=== PATIENT | female | born 1970 | race Two or more races ===

== ENCOUNTER 2016-10-29 03:50 | Inpatient (IN) | payer OTHER ==
--- NOTE | ~2016-10-29 | XA198 ---
[facility] A Service of [facility] RADIOLOGY TEXT RESULTS PATIENT: ANGÉLICA BOWLES LOCATION: [place] [address]10 : [birth year] UNIT #: [id number] AGE: [address]: Gabriella Leavitt MD SEX: F ORDER DR: [id number] [place] [id number] [facility]. [place], [place] [address] [id number] MR#: [id number] Acc #: [id number] NAME: ANGÉLICA BOWLES : 1970 SEX: F STUDY DATE/TIME: 10/31/2016 10:03 UNIT: [facility] ROOM: [facility] STUDY DESCRIPTION: XA Spinal Puncture Attending Physician: Gabriella Leavitt M.D. Ordering Physician: Shayna Curry M.D. Primary Care Physician: No Primary Care Physician MEDICAL IMAGING REPORT This report is preliminary unless electronic signature is present EXAM LP under fluoroscopy HISTORY Recent stroke, mental status change. TECHNIQUE The procedure, attendant risks and options were discussed with the patient through a hair or beauty salon assistant. The patient is placed in the prone position. Skin was prepped and draped over the lumbar region. At the L3-L4 level posterolaterally, a 20-gauge needle was advanced under fluoroscopic control and under local anesthesia into the lumbar subarachnoid space, and approximately 20 mL of clear CSF was collected in 4 tubes. The needle was removed, hemostasis achieved. A single spot radiographs was obtained documenting placement. Total fluoroscopy time was 1.1 minutes. Total exposure 14 mGy. Air kerma standard. The needle was removed. Patient returned to the harmon in stable condition. CONCLUSION Successful LP under fluoro, as noted above. Dictated by... Henrique Henderson M.D. THIS IS AN ELECTRONICALLY VERIFIED REPORT Henrique Henderson M.D. at 11/01/2016 7:26 AM STEPHANIE/devon [facility] A Service of [facility] RADIOLOGY TEXT RESULTS PATIENT: ANGÉLICA BOWLES LOCATION: [facility] [id number] : 72 UNIT #: [id number] AGE: [address]: Gabriella Leavitt MD SEX: F ORDER DR: TD: 10/31/2016 13:17 JOB #: [id number] MEDICAL IMAGING REPORT Page 1 of 1 COPY
--- NOTE | ~2016-10-29 | CR72 ---
[facility] A Service of [facility] & [facility] RADIOLOGY TEXT RESULTS PATIENT: ANGÉLICA BOWLES LOCATION: [place] [address] : 72 UNIT #: [id number] AGE: [address]: Gabriella Leavitt MD SEX: F ORDER DR: [id number] [facility] [address] [place], [place] [address] [id number] I MR#: [id number] Acc #: [id number] NAME: ANGÉLICA BOWLES : 1970 SEX: F STUDY DATE/TIME: 10/30/2016 10:00 UNIT: [facility] ROOM: [facility] STUDY DESCRIPTION: CR Chest Single View Portable Attending Physician: Gabriella Leavitt M.D. Ordering Physician: Reid Gonzalez M.D. Primary Care Physician: Primary Care Physician No MEDICAL IMAGING REPORT This report is preliminary unless electronic signature is present EXAM Chest portable 10/30/2016 10 o'clock hours HISTORY 46-year-old woman with possible stroke. Chest pain with inspiration, low grade fever since yesterday. COMPARISON None. FINDINGS Portable upright chest demonstrates normal cardiac, mediastinal and hilar contours. The pulmonary vascularity is normal. The lungs are clear and there are no effusions. There are ECG leads coiled over the right chest. IMPRESSION No acute cardiopulmonary findings. Dictated by... Melonie Miller M.D. THIS IS AN ELECTRONICALLY VERIFIED REPORT Melonie Miller M.D. at 10/30/2016 2:28 PM Chelsey TD: 10/30/2016 11:22 JOB #: [id number] MEDICAL IMAGING REPORT Page 1 of 1 COPY
--- NOTE | ~2016-10-29 | DS ---
Unit #: [id number] #: [id number] Patient: ANGÉLICA BOWLES [id number] [address] [address] [id number] I MR#: [id number] NAME: ANGÉLICA BOWLES ROOM: 305 Age: 46 Sex: F Admission Date: 10/29/2016 : 1970 Discharge Date: Attending Physician: Gabriella Leavitt M.D. Primary Care Physician: No Primary Care Physician DISCHARGE SUMMARY ADDENDUM The patient is tearful and crying about her diagnosis and therefore, will be starting patient on an antidepressant. Please include to discharge meds: Fluoxetine 20 mg orally daily and neurology have decided to continue patient on aspirin 81 mg daily due to her atherosclerosis of the aorta. Dictated by... Jt Gallardo PA-C for Roverto Arreguin TD: 11/06/2016 09:39 JOB #: [id number] DISCHARGE SUMMARY Page 1 of 1 X X DISCHARGE SUMMARY
--- NOTE | ~2016-10-29 | FU ---
[facility] Nutrition Therapy DATE: 11/02/16 Patient: ANGÉLICA BOWLES Physician: AMANDA Address: [address] [place] [address] Room/Bed: [address] [place] [address], Zip: [place] [address] Admit Date: 10/29/16 Date of : [birth year] Height: 5 3 Weight: 128 58.5 NUTRITION MONITORING/FOLLOW-UP: Reason: Nutrition follow-up Admitting Dx: 46 y/o Bengali-speaking female admitted with R side weakness, found to have stroke Anthropometrics: Ht: 63", admission wt: 123 lbs, current wt: 128 lbs, BMI: 21.8 (normal; based on admission wt) Labs: WNL on 10/30, glucose POC 135-154 11/02 Lipid panel and A1C WNL upon admission Meds: Novolog (low SSI), Zofran prn, Solu-medrol, NSIV @ 100 ml/hr GI: Last BM 10/26 Skin: Puncture procedure site low back, no edema Assessment: Chart reviewed, events noted. Patient advanced to mechanical soft/NDD2 diet with NTL yesterday, per RN (Tiarra) she is tolerating the diet and eating well. Family noted to bring in food at times, which I do not recommend while on altered texture diet. Patient is on the toilet at this time, diplomatic interpreter/translator is not in the room. Patient is s/p stroke however her lipid panel was WNL, she is a lifelong non-smoker and is of normal weight, therefore diet education is not appropriate. She has been accepted to [facility] for rehab. See nutrition goals, dx and recs as stated below. Will continue to follow. Dx: Inadequate protein energy intake r/t decreased appetite, clinical condition AEB patient report, NPO - RESOLVED New nutrition dx: Chewing/swallowing difficulties r/t stroke AEB need for altered texture solids/liquids. Intervention: Diet per TANK BUILDER AND ERECTOR, ONS if desired Monitoring, Evaluation and Goals: 1. Tolerance of diet advancement with PO intake > 50% of meals - MET 2. Maintain weight status - IN PROGRESS (Note 5 lb weight gain since admission) Monitor: Per protocol, criteria to determine if above goals met Recommendations: [facility] Nutrition Therapy DATE: 11/02/16 Patient: ANGÉLICA JELENA Physician: AMANDA Address: [address] [place] [address] Room/Bed: [address] [place] [address], Zip: [place] [address] Admit Date: 10/29/16 Date of : [birth year] Height: 5 3 Weight: 128 58.5 1. Continue diet per TANK BUILDER AND ERECTOR, advance solid/liquid texture to regular/thin as tolerated per TANK BUILDER AND ERECTOR recs. Encourage oral intake. 2. If oral intake declines to < 50% of meals please order Ensure pudding and magic cup each once daily (both appropriate for NTL). Status: Mild nutrition risk Respectfully, Khloe Frank RD, LD Food and Nutritional Services [facility] cc: client file
--- NOTE | ~2016-10-29 | CT24 ---
[facility] A Service of [facility] & [facility] RADIOLOGY TEXT RESULTS PATIENT: ANGÉLICA BOWLES LOCATION: [place] [address] : [birth year] UNIT #: [id number] AGE: [address]: Eliane Roberto MD SEX: F ORDER DR: [id number] [facility] [address]. [place], [place] [address] [id number] I MR#: [id number] Acc #: [id number] NAME: ANGÉLICA BOWLES : 1970 SEX: F STUDY DATE/TIME: 10/29/2016 UNIT: [facility] ROOM: [facility] STUDY DESCRIPTION: CT Angio Neck Stroke Attending Physician: Eliane Roberto M.D. Ordering Physician: Evan Abebe M.D. Primary Care Physician: Primary Care Physician No MEDICAL IMAGING REPORT This report is preliminary unless electronic signature is present EXAM CTA neck Please see CTA head for combined report Dictated by... Shaka Shaver Jr., M.D. THIS IS AN ELECTRONICALLY VERIFIED REPORT Shaka Shaver Jr., M.D. at 10/29/2016 5:20 PM SHARA/yovani TD: 10/29/2016 11:02 JOB #: [id number] MEDICAL IMAGING REPORT Page 1 of 1 COPY
--- NOTE | ~2016-10-29 | CO ---
Unit #: [id number] #: [id number] Patient: ANGÉLICA BOWLES [id number] [facility] [address]. [place], [place] [address] [id number] I MR#: [id number] NAME: ANGÉLICA BOWLES ROOM: [facility] Age: 46 Sex: F Admission Date: 10/29/2016 : 1970 Attending Physician: Gabriella Leavitt M.D. Consultation Date: 10/29/2016 CONSULTATION REPORT PRIMARY CARE PHYSICIAN Not listed. REASON FOR CONSULT Status post alteplase treatment for possible stroke. PATIENT IDENTIFICATION This is a 46-year-old right-handed, Vincentian female, evaluated in ICU room 10 at [facility]. SOURSE OF INFORMATION Obtained from the patient as well as the family using manager employee benefits phone, manager employee benefits ID #[id number]. HISTORY OF PRESENT ILLNESS This is a 46-year-old right-handed, Vincentian female, non-Tristanian speaking, with a past medical history of hysterectomy, but otherwise no significant past medical history or chronic health conditions, who presents to [facility] with sudden right-sided weakness and slurred speech. She received alteplase in the ED and was evaluated by Neurology via robot at the time of administration. She shortly thereafter complained of severe headache, thus a repeat CT of the head was done, it was negative for any acute findings including hemorrhage. Upon my evaluation today after alteplase administration, the patient's states that she has been having some vertigo off and on for 2 to 3 days and some slurred speech, though I do not think this was communicated in the ER. He states he called 911 because she "got worse" through the night with new right-sided weakness and was unable to get up. CT of the head was negative for any acute intracranial abnormality. CT angiogram was negative as well with no evidence of stenosis by NASCET criteria within the head or neck. No plaque disease, no intracranial aneurysm, and no carotid or vertebral dissection. CT of the head did show a small round hypoechoic lucent lesion on the right side of the navi, could reflect chronic lacunar infarct, but again otherwise negative for any clearly acute findings. Her urine tox screen was unremarkable. Beta-hCG screen was negative. Again, repeat CT of the head without contrast did not show any acute findings. It did show again the questionable right paramedian pontine hypodensity, though there is streak artifact in the region on the repeat assessment limiting that evaluation, but otherwise no acute hemorrhage, mass, or other acute findings. Upon evaluation, initially the patient gave very poor effort and inconsistent exam making it difficult. Definitely, the language barrier made it difficult as well, although I did use the manager employee benefits phone. I did have to speak with her , who had to help interpret via the manager employee benefits phone because the patient stated she Unit #: [id number] #: [id number] Patient: ANGÉLICA BOWLES was unable to hold the phone herself. She initially appeared to have an NIH of 5. She appeared to have fluent speech, though again she does not speak Tristanian, so I am uncertain of how fluent it was. She can name and identify and follows simple commands. She is very ill appearing, but was able to use her right side. She was actually pulling away with her right arm initially. However, she has had worsening of her symptoms with inability to use the right upper extremity at this time. She can sense deep nail bed pressure, but no withdrawal from noxious stimuli in the right upper extremity. With her right lower extremity, she does withdrawal and lift against gravity, but not well with resistance. As far as cranial nerve findings, she does not appear to have any clear facial weakness. She gives a very poor effort on exam of her face as well. Extraocular movements are intact. She responds to threats in the primary and peripheral visual rivero. The eyes are conjugate. Pupils are equal, round, reactive. The patient and family deny any exacerbating or alleviating factors, and reports the symptoms were sudden onset, though she has had some fluctuation of above symptoms for the last 2 to 3 days. Her does report via the manager employee benefits phone that she has had some fever and chills for the last few days, complaints of headache and neck pain. He reports that she has had no exposure to ill or sick contacts and has not had any recent illness. She is originally from [place] and just entered the [place] about 5 months ago. She and her family actually traveled by foot through several countries to get here from [place]. They went through several countries in [place]. PAST MEDICAL HISTORY Total abdominal hysterectomy. She denies a history of migraines. SOCIAL HISTORY The patient is and lives with her and other family. She is Greek-speaking and requires use of manager employee benefits for communication here. She drinks alcohol on occasion, but no abuse. She denies illicit drug use. Her urine tox screen is unremarkable. She is a lifelong nonsmoker. FAMILY HISTORY Positive for CVA in her aunt, but otherwise unremarkable. ALLERGIES Lipitor. REVIEW OF SYSTEMS Difficult to obtain given the language barrier, but I did use the manager employee benefits phone and I spoke with her and her via the manager employee benefits phone. Review of systems is positive for headache, neck pain, fever, chills, right-sided weakness, slurred speech. Otherwise, as discussed above. Her states that she has not had any recent injury. She is now complaining of some difficulty with vision, but she does respond to threats in the primary and peripheral visual rivero. PHYSICAL EXAMINATION VITAL SIGNS: Temperature, she has had a T-max of 100.1; pulse 108; respirations 18; blood pressure 95/58; blood pressure in the ER on arrival was 118/59; oxygen saturation 93%; height 5 feet 3 inches; weight 123 pounds; BMI 21. NEUROLOGIC: Her NIH was initially 5 this morning, it appears to be 7 now. Unit #: [id number] #: [id number] Patient: ANGÉLICA BOWLES Difficult to assess fluency of speech that she is non-Tristanian speaking. She does not appear to have any naming or word-finding difficulty, and can answer questions via the manager employee benefits. Cranial nerve exam; she demonstrates positive response to threats in the primary and peripheral visual rivero. Eyes are conjugate without ptosis or nystagmus. Extraocular movements are intact. Sensation of face and scalp is intact. Strength of the muscles of facial expression is difficult. The patient gives a very poor effort consistently on evaluation. No obvious clear facial asymmetry or significant flattening of the nasolabial fold upon evaluation, but examination is very difficult. She does make attempts to smile. She does not appear to have any significant flattening of the nasolabial fold on either side. Hearing is intact to voice. Tongue; does appear to have some deviation to the right, though she gives a very poor effort on evaluation of her tongue as well. Unable to visualize uvula and palate. Head turning is unremarkable. Shoulder shrug is initially unremarkable, but more difficult on the right side now. Neck; she complains of neck pain upon evaluation, though she does not appear to have any stiffness with evaluation of chin tuck. Motor exam; initially, she was able to use her right upper extremity. She would pull away and had a good wood tile installation helper. Now, her right upper extremity, she has no motor response and no movement in response to noxious stimuli, but she does complain of pain in response to noxious stimuli. In the right lower extremity, she does withdrawal to noxious stimuli and left against gravity with the right lower extremity, and sensory seems to be intact on both sides. Motor saab on the left, she appears to be intact. 5/5 in the upper and lower extremity with sensation intact. Gait and Romberg deferred. Reflexes; unable to elicit. Toes are upgoing bilaterally. Coordination is unremarkable, unable to assess currently on the right side. DIAGNOSTIC STUDIES IMAGING STUDIES: CT of the head and CT angiogram of the head and neck as discussed above. LABORATORY RESULTS: Urine tox screen unremarkable. Beta-hCG urine unremarkable. Urinalysis unremarkable. BMP unremarkable other than a CO2 of 21 and a BUN of 7. Cholesterol 124, triglycerides 37, LDL 81, HDL 36, CK total 30. TSH 1.36. CRP 4.7. PT 10.7, INR 1.0, PTT 27.5. White blood cell count 12.4, hemoglobin 12.2, hematocrit 36.9, and platelet count 291. Troponin less than 0.05. All labs are as per chart and have been reviewed at length. IMPRESSION 1. New onset focal neurologic symptoms/deficits, status post alteplase administration. Concerning for possible left middle cerebral artery infarct. Rule out cerebrovascular accident. Rule out other central etiology. 2. Complaints of fever and chills, headache, and neck pain for 3 to 4 days. Rule out infectious etiology. Infectious Disease has been consulted. May need lumbar puncture tomorrow, 24 hours after alteplase. 3. Hypodensity in the right navi on CT, questionable old lacunar infarct. 4. Hypokalemia. PLAN We will treat the headache. She has had a speech evaluation. She is currently n.p.o. No hemorrhage on repeat CT of the head. Request MRI of the brain, stat, as the patient is now complaining of vision changes. She does visually track in response to threats in the primary and peripheral visual rivero, but regardless, she needs a stat MRI of the brain without Unit #: [id number] #: [id number] Patient: ANGÉLICA BOWLES and with contrast to further evaluate to help in aid in further decision making of treatment. Otherwise, Infectious Disease has been consulted. May need lumbar puncture tomorrow. We cannot do today as she has received alteplase. Further recommendations pending workup and further clinical course. Please call for any questions or issues. We thank you very much for allowing us to assist in the care of this patient. Dictated by... Sergio Perez/brenda TD: 10/30/2016 15:58 JOB #: [id number] CONSULTATION REPORT Page 1 of 1 X Marilynn Alfredo BILLING AND QUALITY TECHNICIAN X CONSULTATION REPORT
--- NOTE | ~2016-10-29 | MR17 ---
[facility] A Service of [facility] & [facility] RADIOLOGY TEXT RESULTS PATIENT: ANGÉLICA BOWLES LOCATION: [place] [address]10 : [birth year] UNIT #: [id number] AGE: [address]: Gabriella Leavitt MD SEX: F ORDER DR: [id number] [facility] [address] [place], [place] [address] [id number] MR#: [id number] Acc #: [id number] NAME: ANGÉLICA BOWLES : 1970 SEX: F STUDY DATE/TIME: 10/29/2016 20:28 UNIT: [facility] ROOM: [facility] STUDY DESCRIPTION: MR Brain WWo Contrast Attending Physician: Gabriella Leavitt M.D. Ordering Physician: Marilynn Alfredo A.P.R.N. Primary Care Physician: No Primary Care Physician MRI CENTER REPORT This report is preliminary unless electronic signature is present. EXAM Brain MRI with and without contrast. DATE OF STUDY 10/29/2016 PROCEDURE Routine brain MR with and without contrast. CLINICAL HISTORY Patient presented with relatively acute onset of dizziness and right side weakness in the afternoon. Patient also noted headache, dysphasia. Patient was administered tPA. FINDINGS The exam is markedly abnormal. There are several findings. On the diffusion imaging, there is restricted diffusion in the left sherry-navi and left upper medulla. This extends craniocaudally over a distance of about 2 cm, but even cephalad to this, in the left cortical spinal tract is abnormal T2-signal and swelling in the left cerebral peduncle. And there is positive mass effect and broader swelling in the left sherry-navi. There is no hemorrhagic transformation, and there is also a mature appearing abnormal signal in the right sherry-navi laterally, fairly well-defined. This is not associated with abnormal diffusion signal. Normal flow voids are seen in the cerebral vessels. Postcontrast images show no abnormal enhancement. There is also abnormal FLAIR and T2 signal in the hippocampal formations fairly symmetrically. Again, there is no associated abnormal enhancement. IMPRESSION 1. Abnormal examination. In addition to the striking diffusion [facility] A Service of [facility] & [facility] RADIOLOGY TEXT RESULTS PATIENT: ANGÉLICA BOWLES [id number] [birth year] UNIT #: [id number] AGE: [address]: Gabriella Leavitt MD SEX: F ORDER DR: restriction in the left navi and upper medulla, somewhat longitudinally oriented, abnormal T2 and FLAIR signal without diffusion restriction extends up into the left cerebral peduncle and up to the lower margin of the internal capsule. There is a contralateral right pontine more mature appearing focal malacic change. There are no areas of abnormal enhancement, though there are also changes of T2 and FLAIR hyperintensity in the hippocampal formations very symmetrically without significant restricted diffusion. The findings could simply represent a slightly unusual manifestation of demyelinating disease, and certainly the presence of the lesions which are at what would be apparent different stages of evolution is very suggestive of that finding. No other characteristic of multiple sclerosis type lesions are seen in the periventricular region, and the lack of enhancement would not be exceptional in an actively demyelinating plaque, but is notable. Other demyelinating processes such as neuromyelitis optica should be considered but none of the characteristic lesions of neuromyelitis optica are seen, though the longitudinal involvement of the left cortical spinal tract is at least suggestive of some of the longitudinal spinal images seen in that disorder in some patients. 2. In the presence of the hippocampal involvement suggests certainly the possibility of perineoplastic syndrome, and the presence of abnormal signal in the temporal lobes also naturally raises the possibility of herpetic encephalitis, though, none of the other features of herpes encephalitis such as more diffuse temporal lobe involvement, hemorrhagic change and contrast enhancement, are seen and that seems fairly unlikely. 3. Overall CSF sampling for further evaluation is recommended. 4. The findings do not appear likely to represent ischemic disease. 5. Results discussed with the neurology nurse practitioner at about 3:45 p.m. on October 30. STAT * RESULT Dictated by... Tod Bailey M.D. THIS IS AN ELECTRONICALLY VERIFIED REPORT Tod Bailey M.D. at 10/31/2016 1:12 PM TEV/domo TD: 10/30/2016 16:00 JOB #: [id number] MRI CENTER REPORT Page 1 of 1 COPY
--- NOTE | ~2016-10-29 | CT71 ---
[facility] A Service of [facility] & [facility] RADIOLOGY TEXT RESULTS PATIENT: ANGÉLICA BOWLES LOCATION: [place] [address]10 : [birth year] UNIT #: [id number] AGE: [address]: Gabriella Leavitt MD SEX: F ORDER DR: [id number] [facility] [address] [place], [place] [address] [id number] I MR#: [id number] Acc #: [id number] NAME: ANGÉLICA BOWLES : 1970 SEX: F STUDY DATE/TIME: 10/30/2016 04:18 UNIT: [facility] ROOM: [facility] STUDY DESCRIPTION: CT Head Wo Contrast Attending Physician: Eliane Roberto M.D. Ordering Physician: Eliane Roberto M.D. Primary Care Physician: Primary Care Physician No MEDICAL IMAGING REPORT This report is preliminary unless electronic signature is present EXAM Head CT 10/30 0418 hours INDICATIONS Stroke yesterday. Headache and right side weakness. 24-hour status post TPA administration. This CT exam was performed with one or more of the following radiation dose reduction techniques: automatic exposure control, adjustment of mA and/or kV according to patient size, and iterative reconstruction. FINDINGS Axial images were obtained from base to vertex without contrast. Comparison made with head CT from 10/29/2016 at 06:58 hours as well as brain MRI from 10/29/2016 at 20:28 hours. Ventricular size and configuration remain normal. No hemorrhage is identified. There are no masses. Old lacunar infarct in the right sherry navi is unchanged. The known infarct in the left sherry navi seen on MRI extending into the left cerebral peduncle is not well seen on the CT scan. No associated hemorrhage is identified. Remainder of the brain is normal. IMPRESSION Patients known left side pontine infarct which probably extends into the cerebral peduncle on the left is not well seen by CT. Please see the prior MRI. No evidence of hemorrhage at this time. Dictated by... Shaka Shaver Jr., M.D. THIS IS AN ELECTRONICALLY VERIFIED REPORT Shaka Shaver Jr., M.D. at 10/31/2016 5:53 AM SHARA/marvel [facility] A Service of [facility] RADIOLOGY TEXT RESULTS PATIENT: ANGÉLICA BOWLES LOCATION: [facility] CICCU2-10 : 74 UNIT #: [id number] AGE: [address]: Gabriella Leavitt MD SEX: F ORDER DR: TD: 10/30/2016 08:01 JOB #: [id number] MEDICAL IMAGING REPORT Page 1 of 1 COPY
--- NOTE | ~2016-10-29 | HP ---
Unit #: [id number] #: [id number] Patient: ANGÉLICA BOWLES [id number] [address] [address] [id number] I MR#: [id number] NAME: ANGÉLICA BOWLES ROOM: 18766 Age: 46 Sex: F Admission Date: 10/29/2016 : 1970 Attending Physician: Eliane Roberto M.D. Primary Care Physician: No Primary Care Physician HISTORY AND PHYSICAL CHIEF COMPLAINT Right-sided weakness. HISTORY OF PRESENT ILLNESS This pleasant 46-year-old female with an unremarkable past medical history is admitted for right-sided weakness. The patient felt ill yesterday with dizziness, off balance, frontal and posterior headache. At one a.m., she developed right-sided weakness and difficulty speaking. She was brought to the this emergency department at 4 a.m. where she was mildly tachycardiac but the rest of her vital signs were stable. She had right-sided weakness although some of it seemed to be effort dependent. The case was discussed with Neurology and the patient currently is receiving tPA. Head CT shows no acute disease. There is a small hypoechoic lesion in the right navi which may be an old lacunar infarct. Currently, the patient's speech is improved. Her right-sided weakness is present but improved. PAST MEDICAL HISTORY Total abdominal hysterectomy. SOCIAL HISTORY The patient is living with family. She is Colombian speaking. She drinks occasional alcohol. She is a lifelong nonsmoker. FAMILY HISTORY Her aunt had a CVA. ALLERGIES Possibly to Tylenol. HOME MEDICATIONS None. REVIEW OF SYSTEMS Impossible to obtain due to language barrier. PHYSICAL EXAMINATION GENERAL APPEARANCE: A very pleasant, 46-year-old female currently in no acute distress. VITAL SIGNS: Temperature 98. Pulse 113 which has improved to 92. Respirations 21. Blood pressure 125/72. O2 saturation is 100% on room air. HEENT: Eyes: PERRLA. Extraocular muscles are intact. Pharynx is Unit #: [id number] #: [id number] Patient: ANGÉLICA BOWLES benign. Tongue deviates a little bit to the right. There could be a slight right lower facial droop. NECK: Supple without adenopathy or thyromegaly. CHEST: Clear. CARDIAC: Normal S1, S2 without murmur. ABDOMEN: Bowel sounds present. No hepatosplenomegaly, tenderness or masses. EXTREMITIES: Without clubbing, cyanosis or edema. Pedal pulses are present. No ulcerations on the feet. NEUROLOGIC: The patient is awake, alert, oriented x3. Her cranial nerves are intact. She could have a slight right lower facial droop; however, her speech is fluent. Tongue seems deviated a little bit to the right. She seems to be a little bit weaker on the right than the left but some of this is inconsistent. The patient has subjective numbness on the right as compared to the left. My examination is somewhat suboptimal as she is lying in bed. DIAGNOSTIC STUDIES LABORATORY: Admission labs: Hematocrit is 40.3, WBC count 12.8, normal platelet count and coags. SMA-12: Glucose 144, sodium 132, potassium 3.3. IMAGING: Head CT: Possible old lacunar infarct, right navi. CTA of the head and neck: Negative. CARDIOVASCULAR: EKG: Sinus tachycardia, rate 104, otherwise, normal appearing. ASSESSMENT 1. Right-sided weakness. Rule out ischemic event. 2. Hypokalemia. PLAN 1. The case was discussed with Neurology and the patient currently is received tPA. 2. IV fluids. 3. Replace potassium. 4. Monitor carefully in the intensive care unit. 5. SCDs for DVT prophylaxis. 6. Check lipid profile and hemoglobin A1C. 7. Replace potassium. 8. MRI and CORAL, etc. per Neurology. Critical care time spent in evaluating this patient was 35 minutes. Dictated by Eliane Roberto M.D. AML/alden TD: 10/29/2016 07:05 JOB #: [id number] Unit #: [id number] #: [id number] Patient: ANGÉLICA BOWLES HISTORY AND PHYSICAL Page 1 of 1 X Eliane Roberto MD HISTORY AND PHYSICAL
--- NOTE | ~2016-10-29 | A ---
[facility] Nutrition Therapy DATE: 10/30/16 Patient: ANGÉLICA BOWLES Physician: AMANDA Address: [address] [place], [place] [address] Room/Bed: [address], Zip: [place] [address] Admit Date: 10/29/16 Date of : [birth year] Height: 5 3 Weight: 121 55 NUTRITIONAL ASSESSMENT: REASON: PT SEEN FOR CONSULT RE: STROKE, ALSO NPO IN ICU ASSESSMENT PT IS 46 Y.O. FEMALE ADMITTED FOR (R) SIDE WEAKNESS, FEVER PMH: TOTAL ABDOMINAL HYSTERECTOMY Anthropometrics: 5'3", WT: 123# (PER PT) (56 KG), BMI: 21.8 Labs: WNL Meds: NACL, NOVOLOG, ZOFRAN I/O & Bowel function: 2241/1665 Skin Integrity: BLE TRACE EDEMA; NO KNOWN SKIN ISSUES Estimated Nutrition Needs: INCREASED NUTRIENT NEEDS 2' CURRENT CONDITION, DECREASED PO INTAKE AND APPETITE NOTED, ?WEIGHT LOSS NOTED Assessment: CHART REVIEWED AND EVENTS NOTED. PT SEEN FOR NPO IN ICU + CONSULT RE: STROKE. OF NOTE, PT PERSIAN-SPEAKING, RD SPOKE TO PT VIA IN-PERSON PATIENT SERVICES COORDINATOR. PT REPORTS DECREASED PO INTAKE 2' DECREASED APPETITE PAST FEW DAYS D/T "NOT FEELING WELL". PT NOTES SOME WEIGHT LOSS BUT DID NOT KNOW AMOUNT & TIME FRAME. PLANS IN PLACE FOR PRESSURIZER EVAL LATER TODAY. PT REPORTED NO DIET QUESTIONS AT THIS TIME. RD TO FOLLOW. SEE RECOMMENDATIONS BELOW. Dx: INADEQUATE PROTEIN-ENERGY INTAKE R/T DECREASED APPETITE, CURRENT CONDITION AEB PT REPORT ABOVE, CURRENT NPO STATUS. Intervention: 1. NPO 2. PRESSURIZER 3. RD CONSULT Monitoring, Evaluation and Goals: 1. ORAL INTAKE; ADVANCE DIET PER PRESSURIZER + CONSUME >50% OF MEALS W/NO C/O N/V/D 2. WEIGHTS; PROMOTE WEIGHT MAINTENANCE; PREVENT WEIGHT LOSS MONITOR: -PRESSURIZER EVAL -DIET ADVANCEMENT/PO INTAKE -WEIGHTS [facility] Nutrition Therapy DATE: 10/30/16 Patient: ANGÉLICA BOWLES Physician: AMANDA [address]: [address] Room/Bed: [address], Zip: [place] [address] Admit Date: 10/29/16 Date of : [birth year] Height: 5 3 Weight: 121 55 Recommendations: 1. ONCE MEDICALLY FEASIBLE, ADVANCE DIET PER PRESSURIZER EVAL + HH DIET 2. ORDER APPROPRIATE SUPPLEMENTS (ENSURE ENLIVE, ENSURE CLEAR, PUDDING, MAGIC CUP BID) ONCE DIET ADVANCES 3. ENCOURAGE PO INTAKE ONCE DIET ADVANCES 4. IF PT NOT APPROPRIATE FOR DIET ADVANCEMENT, CONSULT RD FOR ALTERNATIVE NUTRITION SUPPORT RECOMMENDATIONS RD WILL F/U PER PROTOCOL PT IS MODERATELY COMPROMISED Respectfully, RAMY GARCIA MS, RD, LD Food and Nutritional Services [facility] cc: client file
--- NOTE | ~2016-10-29 | CT71 ---
[facility] A Service of [facility] RADIOLOGY TEXT RESULTS PATIENT: ANGÉLICA BOWLES LOCATION: [address] : [birth year] UNIT #: [id number] AGE: [address]: Gabriella Leavitt MD SEX: F ORDER DR: [id number] [facility] [address] [place], [place] [address] [id number] I MR#: [id number] Acc #: [id number] NAME: ANGÉLICA BOWLES : 1970 SEX: F STUDY DATE/TIME: 10/29/2016 6:58 UNIT: [facility] ROOM: [facility] STUDY DESCRIPTION: CT Head Wo Contrast Attending Physician: Eliane Roberto M.D. Ordering Physician: Evan Abebe M.D. Primary Care Physician: Primary Care Physician No MEDICAL IMAGING REPORT This report is preliminary unless electronic signature is present EXAM Head CT no contrast 10/29/2016 PROCEDURE Axial unenhanced head CT. The CT exam was performed with one or more of the following radiation dose reduction techniques: automatic exposure control, adjustment of mA and/or kV according to patient size, and iterative reconstruction. HISTORY Dizziness and right side weakness in the afternoon with slurred speech. The patient received TPA and also notes a TPA headache. FINDINGS There is no intracranial hemorrhage and there is no mass. There is no hydrocephalus or extraaxial fluid collection. Questionable right paramedian pontine hypodensity, though streak artifact in this region limits assessment. IMPRESSION Question right paramedian pontine hypodensity, though there is streak artifact in this region, limiting assessment. Otherwise negative head CT, no hemorrhage or mass or other acute finding. Dictated by... Tod Bailey M.D. THIS IS AN ELECTRONICALLY VERIFIED REPORT Tod Bailey M.D. at 10/31/2016 1:22 PM [facility] A Service [facility] RADIOLOGY TEXT RESULTS PATIENT: ANGÉLICA BOWLES LOCATION: [place] [id number] : [birth year] UNIT #: [id number] AGE: [address]: Gabriella Leavitt MD SEX: F ORDER DR: Saima TD: 10/29/2016 11:19 JOB #: [id number] MEDICAL IMAGING REPORT Page 1 of 1 COPY
--- NOTE | ~2016-10-29 | CT72 ---
[facility] A Service of [facility] & [facility] RADIOLOGY TEXT RESULTS PATIENT: ANGÉLICA BOWLES LOCATION: A 305-01 : 74 UNIT #: [id number] AGE: [address]: Gabriella Leavitt MD SEX: F ORDER DR: [id number] [facility] [address] [place], [place] [address] [id number] I MR#: [id number] Acc #: [id number] NAME: ANGÉLICA BOWLES : 1970 SEX: F STUDY DATE/TIME: 10/29/2016 04:04 [facility]: [facility] STUDY DESCRIPTION: CT Head Wo Contrast Stroke Attending Physician: Gabriella Leavitt M.D. Ordering Physician: Ed Doctor [id number] [facility] Primary Care Physician: Primary Care Physician No MEDICAL IMAGING REPORT This report is preliminary unless electronic signature is present REVISED REPORT SEE ADDENDUM EXAM Head CT 10/29 04:04 INDICATIONS Dizziness, weakness, more so on the right side that started yesterday afternoon. Slurred speech. Headache now. The CT exam was performed with one or more of the following radiation dose reduction techniques: automatic exposure control, adjustment of mA and/or kV according to patient size, and iterative reconstruction. FINDINGS: Axial images were obtained from base to the vertex. No comparison. Ventricular size configuration are normal. There is no acute hemorrhage. No masses are seen. Findings are suspicious for a small lacunar infarct in the right side of the navi. This may be a chronic finding. This could be better assessed with MRI. The remainder the brain is normal. No skull fractures are identified. IMPRESSION Small round hypoechoic lucent lesion in the right side of the navi could reflect a lacunar infarct, possibly chronic. This would be better evaluated with MRI. The rest of the brain is normal. Dictated by... Shaka Shaver Jr., M.D. THIS IS AN ELECTRONICALLY VERIFIED REPORT Shaka Shaver Jr., M.D. at 10/29/2016 5:19 PM Siobhan [facility] A Service of [facility] & [facility] RADIOLOGY TEXT RESULTS PATIENT: ANGÉLICA BOWLES LOCATION: [place] 305-01 : 74 UNIT #: [id number] AGE: [address]: Gabirella Leavitt MD SEX: F ORDER DR: TD: 10/29/2016 10:49 JOB #: [id number] ADDENDUM The impression should read as follows: Small round hypodense lesion in the right side of the navi could reflect a lacunar infarct, possibly chronic. This would be better evaluated with MRI. The rest of the brain is normal. Dictated by... Shaka Shaver Jr., M.D. THIS IS AN ELECTRONICALLY VERIFIED REPORT Shaka Shaver Jr., M.D. at 11/01/2016 10:12 PM Perez TD: 10/30/2016 08:00 JOB #: [id number] CC: Antoine/lindsayision Please Delete MEDICAL IMAGING REPORT Page 1 of 1 COPY
--- NOTE | ~2016-10-29 | DS ---
Unit #: [id number] #: [id number] Patient: ANGÉLICA BOWLES [id number] [address] [place], [place] [address] [id number] I MR#: [id number] NAME: ANGÉLICA BOWLES ROOM: 305 Age: 46 Sex: F Admission Date: 10/29/2016 : 1970 Discharge Date: Attending Physician: Gabriella Leavitt M.D. Primary Care Physician: No Primary Care Physician DISCHARGE SUMMARY DISCHARGE DIAGNOSES 1. Right-sided weakness consistent with demyelinating disease, multiple sclerosis. 2. Rule out cerebrovascular accident. 3. Fever, likely reactive. 4. Mild to moderate diffuse atherosclerosis of aorta. PROCEDURES 1. Patient had a CORAL by Dr. Jacobson 10/30/16 with a summary of left ventricular systolic function is normal, estimated to be about 60% to 65%. No regional wall motion abnormality is noted. Bubble study was performed. No shunt was noted across the atrial septum. Mild mitral regurgitation is present and mild tricuspid regurgitation. No evidence of any pericardial effusion. No clots in the left atrial appendage. No vegetation. Mild to moderate diffuse atherosclerosis of aorta. 2. Patient also had a lumbar puncture done through Interventional Radiology on 10/31/16. DIAGNOSTIC STUDIES IMAGING: CTA of head and neck on 10/29/16, impression: Negative head and neck CT angiogram. There is no evidence of stenosis within the head or neck. There is no plaque disease. There is no intracranial aneurysm. There is no carotid vertebral dissection. CT head without contrast 10/29/16, impression: Small round hypoechoic lucent lesion in the left side of the navi could reflect a lacunar infarct, possibly chronic. This would be better evaluated with MRI. The rest of the result is normal. Second CT head on 10/29/16, impression: Question right paramedian pontine hypodensity, though there is streak artifact in this region limiting assessment. Otherwise negative head CT, no hemorrhage or mass or other acute finding. MRI of the brain on 10/29/16, impression: Abnormal examination. In addition to the striking diffusion restriction in the left navi and upper medulla, somewhat longitudinally oriented, abnormal T2 and FLAIR signal without diffusion restriction extends up into the left cerebral peduncle and up to the lower margin of the internal capsule. Findings could represent unusual manifestation of demyelinating disease. Presence of hippocampal involvement suggests certainly the possibility of perineoplastic syndrome, presence of abnormal signal in the temporal lobes Unit #: [id number] #: [id number] Patient: ANGÉLICA BOWLES also naturally raises the possibility of herpetic encephalitis. The findings do not appear likely to represent ischemic disease. CT head on 10/30/16, impression: Left-side pontine infarct probably extends into cerebral peduncle on the left, is not well seen on CT. No evidence of hemorrhage. X-ray on 10/30/16, impression: No acute cardiopulmonary findings. Lumbar puncture on 10/31/16, conclusion: Successful lumbar puncture under fluoroscopy. LABORATORY: Today's labs include; BMP: glucose 136, BUN 21, creatinine 0.5, sodium 137, potassium 3.5, chloride 103, CO2 26. CBC with WBC of 12.9, RBC 3.86, hemoglobin 11.5, hematocrit 35.4. MCV 91.8, MCH 29.9, MCHC 32.6, RDW 13.1, platelets 312, MPV 9.4. Microbiology: Blood culture no growth. CSF no growth after [address] Gonzalez of infectious disease. 2. Dr. Posey as well as Dr. Curry of neurology. HOSPITAL COURSE Patient is a 46-year-old female with no significant past medical history, who was brought to the emergency department due to right-sided weakness. Patient states the day prior to hospitalization had symptoms of dizziness, feeling off balance, frontal and posterior headache. At 1:00 a.m. she developed right-sided weakness and difficulty speaking and she was brought to the emergency department at 4:00 a.m. where she was mildly tachycardic and had right-sided weakness. Neurology was called upon in the emergency room and had recommended that patient receive tPA. Patient was admitted for right-sided weakness, status post tPA. Following the administration of tPA, patient had persistent right-sided sided weakness and no improvement in her symptoms. With further MRI of the brain it was stated that finding was less likely to be ischemic disease and more suggestive of a demyelinating disease but it also suggests the possibility of herpes encephalitis therefore patient had undergone the rest of the CVA workup including CT angio of head and neck which was unremarkable. Patient did also have a CORAL, transesophageal echocardiogram, by Dr. Jacobson which showed no shunting across with the bubble study but there does appear to be mild to moderate diffuse atherosclerosis of the aorta. Dr. Gonzalez of infectious disease did workup including lumbar puncture, blood culture and CSF culture with no growth. At this time it is thought that the patient's right-sided weakness as well as headache is not infectious in nature and therefore under the guidance of Neurology patient has been started on IV steroids. After the administration of IV steroid patient has had some return of function of her right side upper and lower extremity. MS panel is still pending at this time. Patient has been seen by Physical and Occupational Therapy and at this time patient will be discharged to [facility] for continued aggressive physical therapy. Patient will finish her IV steroid at the end of today and will be stable for discharge to rehab in the morning. DISCHARGE CONDITION Stable to [facility]. DISCHARGE FOLLOWUP To follow up with [facility] multiple sclerosis department Unit #: [id number] #: [id number] Patient: ANGÉLICA BOWLES where they can follow up with her MS panel. DISCHARGE DIET To resume a heart healthy diet. ACTIVITY Activity is continued physical therapy at rehab. DISCHARGE MEDICINES Patient was not on any prior medications and I will defer to Neurology to address the aspirin for her atherosclerosis of the aorta that was found on CORAL. This dictation took 45 minutes, to include patient education via phone manager desktop and to coordinate care. Dictated by... Jt Gallardo PA-C for Roverto Arreguin/alexei TD: 11/05/2016 15:20 JOB #: [id number] DISCHARGE SUMMARY Page 1 of 1 X X DISCHARGE SUMMARY
--- NOTE | ~2016-10-29 | EKG ---
PATIENT: ANGÉLICA BOWLES UNIT #: [id number] Ventricular Rate: 104 BPM Atrial Rate: 104 BPM P-R Interval: 136 ms QRS Duration: 88 ms Q-T Interval: 360 ms QTC Calculation(Bezet): 473 ms P [place]: 72 degrees Calculated R [place]: 41 degrees Calculated T [place]: 47 degrees Diagnosis Line: Sinus tachycardia Diagnosis Line: Otherwise normal ECG Diagnosis Line: No previous ECGs available Diagnosis Line: Confirmed by MELODY AYALA MD ([id number]) on Diagnosis Line: 10/30/2016 1:28:57 PM INTERPRETING MD: LUCY NAJERA
--- NOTE | ~2016-10-29 | CO ---
Unit #: [id number] #: [id number] Patient: ANGÉLICA BOWLES [id number] [address] [place], [place] [address] [id number] MR#: [id number] NAME: ANGÉLICA BOWLES ROOM: [facility] Age: 46 Sex: F Admission Date: 10/29/2016 : 1970 Attending Physician: Gabriella Leavitt M.D. Consultation Date: 10/29/2016 CONSULTATION REPORT Primary care physician Dr. Leavitt REASON FOR CONSULTATION Fever. HISTORY OF PRESENT ILLNESS This is a 46-year-old Ashok Russian without any past medical history, who was admitted with sudden onset of right-sided weakness with dizziness and headache along with dysarthria. She was seen in the ER 4 a.m., where she was noted to have right hemiplegia and was treated with the tPA. Her initial CT scan did not show any acute stroke. Today, she had a low-grade fever of 100.1, for which ID was consulted. The patient is clinically stable. She is not on any antibiotics. She is not taking cardiac hypotensive, does not have any focal symptoms like cough, dysuria, or chills. ID was consulted to evaluate for fever. PAST MEDICAL HISTORY Total abdominal hysterectomy. She does not have any chronic medical problems. SOCIAL HISTORY She is . Lives at home. She denies alcohol, drug, or tobacco abuse. FAMILY HISTORY Her aunt had CVA at age 50. ALLERGIES Possibly Tylenol. MEDICATIONS Home medications none. In the hospital, she is on Fioricet, Activase, Zofran, and IV fluids. SYSTEMIC REVIEW Weakness, no other symptoms were positive on detailed symptomatic inquiry by me. PHYSICAL EXAMINATION GENERAL: Reveals a young female, who is awake and alert, in no acute distress. VITAL SIGNS: Stable, at this time temperature is 100.1, heart rate is 90, respirations 20, blood pressure 103/69. NECK: Supple. Oral hygiene is adequate. There is no JVD, rash, or Unit #: [id number] #: [id number] Patient: ANGÉLICA BOWLES edema. LUNGS: Clear to percussion and auscultation. HEART: Sounds normal without any murmurs. ABDOMEN: Soft and nontender. There is no rebound or guarding. Bowel sounds normal. NEUROLOGIC: Shows right hemiplegia and right supranuclear seventh nerve palsy. DIAGNOSTIC STUDIES LABORATORY RESULTS: Urinalysis is negative. Urine drug screen is negative. Beta-hCG is negative. BMP is unremarkable. White count 12.4, hematocrit 36.9, platelets 291, neutrophils 86%. IMAGING STUDIES: CT angio of the neck and head was negative. Head CT shows small lacunar infarct in the navi which is likely chronic. There was no acute infarct noted. IMPRESSION Low-grade fever in the setting of acute hemiplegia due to possible cerebral infarction, is nonspecific and may be related to the drugs or cerebrovascular accident. There is nothing to suggest acute infectious process. RECOMMENDATIONS Observe off antibiotics and will wait for the septic workup. Further recommendation will follow. Dictated by... Roverto Rogers/brenda TD: 10/30/2016 05:31 JOB #: [id number] CONSULTATION REPORT Page 1 of 1 X Reid Gonzalez MD X CONSULTATION REPORT
--- NOTE | ~2016-10-29 | CT18 ---
[facility] A Service of [facility] & [facility] RADIOLOGY TEXT RESULTS PATIENT: ANGÉLICA BOWLES LOCATION: [place] [id number] : [birth year] UNIT #: [id number] AGE: [address]: Eliane Roberto MD SEX: F ORDER DR: [id number] [facility] [address] [place], [place] [address] [id number] I MR#: [id number] #: [id number] NAME: ANGÉLICA BOWLES : 1970 SEX: F STUDY DATE/TIME: 10/29/2016 [facility] RO[facility]: [facility] STUDY DESCRIPTION: CT Angio Head Stroke Attending Physician: Eliane Roberto M.D. Ordering Physician: Evan Abebe M.D. Primary Care Physician: Primary Care Physician No MEDICAL IMAGING REPORT This report is preliminary unless electronic signature is present EXAM Head and neck CT angiogram 10/29 at 04:16 INDICATIONS Dizziness, weakness more so on the right side since yesterday afternoon. Slurred speech and headache. TECHNIQUE Axial images were obtained through the head and neck following the IV administration of contrast. 3-D reformats were obtained. No comparison CT angiogram. The CT exam was performed with one or more of the following radiation dose reduction techniques: automatic exposure control, adjustment of mA and/or kV according to patient size, and iterative reconstruction. FINDINGS Within the neck, there is no evidence of carotid or vertebral stenosis by NASCET criteria. There is no plaque disease or dissection. The vertebral arteries are codominant. The aortic branching pattern is normal. Intracranially, no flow-limiting stenosis or vascular malformation is seen. There is no vessel cutoff. No aneurysm is identified. The right A1 segment is mildly hypoplastic relative to the left but both are widely patent. Incidental note is made of a right side MCA which bifurcates early relative to the left. Major dural venous sinuses are patent. IMPRESSION Negative head and neck CT angiogram. There is no evidence of stenosis by NASCET criteria within the head or neck. There is no plaque disease. There is no intracranial aneurysm. There is no carotid vertebral dissection. STS. [facility] A Service of [facility] & [facility] RADIOLOGY TEXT RESULTS PATIENT: ANGÉLICA BOWLES LOCATION: [address] : [birth year] UNIT #: [id number] AGE: [address]: Eliane Roberto MD SEX: F ORDER DR: Dictated by... Shaka Shaver Jr., M.D. THIS IS AN ELECTRONICALLY VERIFIED REPORT Shaka Shaver Jr., M.D. at 10/29/2016 5:19 PM SHARA/yovani TD: 10/29/2016 10:57 JOB #: [id number] MEDICAL IMAGING REPORT Page 1 of 1 COPY
[2016-10-29 04:16] LABS: POC - CREATININE 0.73 mg/dL (0.44-1.03); POC - GFR >60.0 mL/min (>60)
[2016-10-29 04:27] LABS: BASOPHIL# 0.1 X10e3 (0-0.3); BASOPHIL% 0.5 % (0-2.5); EOSINOPHIL% 0.3 % (0.0-7.0); HEMATOCRIT 40.3 % (35.0-45.0); HEMOGLOBIN 13.2 gm/dL (12.0-16.0); LYMPHOCYTE% 15.3 % (17.0-45.0); MEAN CELL VOLUME 90.9 FL (83-96); MEAN CORPUSCULAR HEMOGLOBIN 29.9 PG (28-34); MEAN CORPUSCULAR HGB CONC 32.8 g/dL (30-36); MEAN PLATELET VOLUME 8.8 FL (6.5-11.5); MONOCYTE# 0.5 X10e3 (0-1.0); MONOCYTE% 4.2 % (3.0-12.0); NEUTROPHIL# 10.2 X10e3 (1.5-7.1); NEUTROPHIL% 79.7 % (40-75); PLATELET COUNT 304 X10e3 (140-420); RED BLOOD COUNT 4.44 X10e (3.90-5.30); WHITE BLOOD COUNT 12.8 X10e3 (4.0-10.5)
[2016-10-29 04:28] LABS: DIFF IND NO
[2016-10-29 04:42] LABS: PARTIAL THROMBOPLASTIN TIME 27.6 SECONDS (23.5-31.3); PROTHROMBIN TIME (PATIENT) 10.5 SECONDS (9.6-11.5)
[2016-10-29 04:51] LABS: ALBUMIN SERUM 3.8 g/dL (3.5-5.0); BILIRUBIN, DIRECT 0.1 mg/dL (0.0-0.2); BILIRUBIN,INDIRECT 0.8 mg/dL (0.0-0.9); BILIRUBIN,TOTAL 0.9 mg/dL (0.2-2.0); BUN/CREATININE RATIO 17.14; CALCIUM SERUM 8.6 mg/dL (8.4-10.2); CREATININE SERUM 0.7 mg/dL (0.6-1.4); GLOM FILT RATE Estimated 105.4 mL/min (>60); POTASSIUM 3.3 mmol/L (3.5-5.1); PROTEIN TOTAL SERUM 7.6 g/dL (6.0-8.3)
[2016-10-29 06:46] LABS: POC - CKMB <1.0 ng/mL (0.0-7.9); POC - TROPONIN <0.05 ng/mL (<=0.05)
[2016-10-29 11:09] LABS: BASOPHIL# 0.1 X10e3 (0-0.3); BASOPHIL% 0.7 % (0-2.5); HEMATOCRIT 36.9 % (35.0-45.0); HEMOGLOBIN 12.2 gm/dL (12.0-16.0); LYMPHOCYTE# 1.2 X10e3 (1.0-3.5); LYMPHOCYTE% 9.4 % (17.0-45.0); MEAN CELL VOLUME 90.5 FL (83-96); MEAN CORPUSCULAR HEMOGLOBIN 29.9 PG (28-34); MEAN PLATELET VOLUME 8.5 FL (6.5-11.5); MONOCYTE# 0.5 X10e3 (0-1.0); MONOCYTE% 3.7 % (3.0-12.0); NEUTROPHIL# 10.7 X10e3 (1.5-7.1); NEUTROPHIL% 86.2 % (40-75); PLATELET COUNT 291 X10e3 (140-420); RED BLOOD COUNT 4.08 X10e (3.90-5.30); RED CELL DISTRIBUTION WIDTH 13.5 % (11.0-15.5); WHITE BLOOD COUNT 12.4 X10e3 (4.0-10.5)
[2016-10-29 11:12] LABS: DIFF IND NO
[2016-10-29 13:07] LABS: PROTHROMBIN TIME (PATIENT) 10.7 SECONDS (9.6-11.5)
[2016-10-29 13:38] LABS: BUN/CREATININE RATIO 11.66; CALCIUM SERUM 8.8 mg/dL (8.4-10.2); CREATININE SERUM 0.6 mg/dL (0.6-1.4); GLOM FILT RATE Estimated 110.9 mL/min (>60)
[2016-10-29 15:23] LABS: URINE SOURCE CATH
[2016-10-29 15:28] LABS: URINE APPEARANCE CLEAR; URINE BILIRUBIN NEG (NEG); URINE BLOOD TRACE (NEG); URINE COLOR YELLOW; URINE GLUCOSE NEG (NEG); URINE KETONE 3+ (NEG); URINE LEUKOCYTE ESTERASE NEG (NEG); URINE NITRATE NEG (NEG); URINE PH 5.5 (5-8); URINE PROTEIN NEG (NEG); URINE SPECIFIC GRAVITY 1.017 (1.003-1.035); URINE UROBILINOGEN 0.2 MG/DL (NEG)
[2016-10-29 15:34] LABS: U HYALINE CASTS AUWI 0-2 /[LPF]; URBCS1 AUWI 0-2 /[HPF] (0-2); URINE BACTERIA AUWI NEG (NEGATIVE); URINE SQUAMOUS EPITHELIAL CELL NONE SEEN /[HPF]; UWBCS1 AUWI 0-2 (0-5)
[2016-10-29 15:37] LABS: AMPHETAMINE NEG (NEG); BARBITURATES NEG (NEG); BENZODIAZEPINES NEG (NEG); COCAINE NEG (NEG); MARIJUANA NEG (NEG); OPIATES NEG (NEG); TRICYCLIC ANTIDEPRESSANTS NEG (NEG); U METHADONE NEG (NEG)
[2016-10-30 05:03] LABS: BASOPHIL% 0.3 % (0-2.5); EOSINOPHIL% 0.1 % (0.0-7.0); HEMATOCRIT 35.5 % (35.0-45.0); HEMOGLOBIN 11.6 gm/dL (12.0-16.0); LYMPHOCYTE# 2.2 X10e3 (1.0-3.5); LYMPHOCYTE% 22.3 % (17.0-45.0); MEAN CELL VOLUME 90.7 FL (83-96); MEAN CORPUSCULAR HEMOGLOBIN 29.8 PG (28-34); MEAN CORPUSCULAR HGB CONC 32.8 g/dL (30-36); MEAN PLATELET VOLUME 8.3 FL (6.5-11.5); MONOCYTE# 0.8 X10e3 (0-1.0); MONOCYTE% 8.5 % (3.0-12.0); NEUTROPHIL# 6.7 X10e3 (1.5-7.1); NEUTROPHIL% 68.8 % (40-75); PLATELET COUNT 260 X10e3 (140-420); RED BLOOD COUNT 3.91 X10e (3.90-5.30); RED CELL DISTRIBUTION WIDTH 13.1 % (11.0-15.5); WHITE BLOOD COUNT 9.7 X10e3 (4.0-10.5)
[2016-10-30 05:06] LABS: DIFF IND NO
[2016-10-30 05:10] LABS: BASOPHIL# 0.1 X10e3 (0-0.3); BASOPHIL% 0.7 % (0-2.5); EOSINOPHIL% 0.1 % (0.0-7.0); HEMATOCRIT 36.4 % (35.0-45.0); HEMOGLOBIN 12.2 gm/dL (12.0-16.0); LYMPHOCYTE% 21.1 % (17.0-45.0); MEAN CELL VOLUME 89.8 FL (83-96); MEAN CORPUSCULAR HEMOGLOBIN 30.2 PG (28-34); MEAN CORPUSCULAR HGB CONC 33.6 g/dL (30-36); MEAN PLATELET VOLUME 8.3 FL (6.5-11.5); MONOCYTE# 0.8 X10e3 (0-1.0); MONOCYTE% 8.5 % (3.0-12.0); NEUTROPHIL# 6.5 X10e3 (1.5-7.1); NEUTROPHIL% 69.6 % (40-75); PLATELET COUNT 262 X10e3 (140-420); RED BLOOD COUNT 4.05 X10e (3.90-5.30); RED CELL DISTRIBUTION WIDTH 13.5 % (11.0-15.5); WHITE BLOOD COUNT 9.4 X10e3 (4.0-10.5)
[2016-10-30 05:11] LABS: DIFF IND NO
[2016-10-30 06:26] LABS: CALCIUM SERUM 8.7 mg/dL (8.4-10.2); CREATININE SERUM 0.6 mg/dL (0.6-1.4); GLOM FILT RATE Estimated 110.9 mL/min (>60); POTASSIUM 3.7 mmol/L (3.5-5.1)
[2016-10-31 11:35] LABS: CSF APPEARANCE CLEAR (CLEAR); CSF TUBE NUMBER 1; CSF XANTHACHROMIC NO
[2016-10-31 11:36] LABS: CSF RBC 69 CMM (0); CSF WBC 166 CMM (0-8)
[2016-10-31 12:12] LABS: CSF LYMPHOCYTE 51 %; CSF MONOCYTE 3 %; CSF NEUTROPHIL 46 %
[2016-10-31 12:22] LABS: CRYPTO AG CSF/SERUM NEG (NEG); CRYPTO AG SOURCE CSF
[2016-10-31 17:31] LABS: GLUCOSE-CSF 59 mg/dL (50-80); PROTEIN-CSF 42 mg/dL (15-45)
[2016-11-01 19:22] LABS: HSV 1 DNA Not Detected (Not Detected); HSV 2 DNA Not Detected (Not Detected)
[2016-11-01 22:23] LABS: PROTEIN C ACTIVITY 145 % (70-180); PROTEIN S 98 % (60-140)
[2016-11-03 06:36] LABS: HEMATOCRIT 32.3 % (35.0-45.0); HEMOGLOBIN 10.8 gm/dL (12.0-16.0); MEAN CELL VOLUME 91.4 FL (83-96); MEAN CORPUSCULAR HEMOGLOBIN 30.5 PG (28-34); MEAN CORPUSCULAR HGB CONC 33.3 g/dL (30-36); MEAN PLATELET VOLUME 9.1 FL (6.5-11.5); RED BLOOD COUNT 3.54 X10e (3.90-5.30); RED CELL DISTRIBUTION WIDTH 13.1 % (11.0-15.5); WHITE BLOOD COUNT 9.2 X10e3 (4.0-10.5)
[2016-11-03 07:21] LABS: BUN/CREATININE RATIO 36.66; CALCIUM SERUM 8.3 mg/dL (8.4-10.2); CREATININE SERUM 0.6 mg/dL (0.6-1.4); GLOM FILT RATE Estimated 110.9 mL/min (>60); POTASSIUM 3.2 mmol/L (3.5-5.1)
[2016-11-04 14:11] LABS: ANA SCREEN Negative (Negative)
[2016-11-05 06:21] LABS: HEMATOCRIT 35.4 % (35.0-45.0); HEMOGLOBIN 11.5 gm/dL (12.0-16.0); MEAN CELL VOLUME 91.8 FL (83-96); MEAN CORPUSCULAR HEMOGLOBIN 29.9 PG (28-34); MEAN CORPUSCULAR HGB CONC 32.6 g/dL (30-36); MEAN PLATELET VOLUME 9.4 FL (6.5-11.5); RED BLOOD COUNT 3.86 X10e (3.90-5.30); RED CELL DISTRIBUTION WIDTH 13.1 % (11.0-15.5); WHITE BLOOD COUNT 12.9 X10e3 (4.0-10.5)
[2016-11-05 07:30] LABS: CREATININE SERUM 0.5 mg/dL (0.6-1.4); GLOM FILT RATE Estimated 117.7 mL/min (>60); POTASSIUM 3.5 mmol/L (3.5-5.1)
[2016-11-05 15:59] LABS: CARDIOLIPIN IGG (LUPUS) <14 GPL (<=14); CARDIOLIPIN IGM (LUPUS) <12 MPL (<=12); DRVVT CONFIRM Negative (Negative); DRVVT MIX INTERP (LUPUS) Not Indicated (()); HEXAGONAL PHASE CONF (LUPUS) Weak Positive (Negative); IMM PTT LA MIX CORRECTED (()); INCUB PTT LA MIX CORRECTED (()); INR LUPUS 1.1 (()); PROTROMBIN TIME LUPUS 11.5 sec (9.0-11.5); PT (LA MIX STUDY) 11.5 sec (<=11.5); PTT MIX INTERP Has been added (()); PTT-LA 46 sec (<=40); PTT-LA SCREEN (LUPUS) 46 sec (<=40); THROMBIN TIME LUPUS 17 sec (13-19); dRVVT SCREEN (LUPUS) 52 sec (<=45)
[2016-11-08 16:51] LABS: SPE A1GLOB (PNL) 0.4 g/dL (0.2-0.3); SPE ALB (PNL) 3.6 g/dL (3.8-4.8); SPE BETA 1 GLOBULIN 0.5 g/dL (0.4-0.6); SPE BETA 2 GLOBULIN 0.6 g/dL (0.2-0.5); SPE GAMMA (PNL) 1.3 g/dL (0.8-1.7); SPETP (PNL) 7.3 g/dL (6.1-8.1)
== END 2016-11-06 15:10 | DRG 60 ==
LOC: CED 03:50 → CICCU2 05:59 → CEDOF 05:59 → CICCU2 09:20 → C3A PCU 11-01 16:04
PROVIDERS: Emergency Medicine; Family Medicine; Internal Medicine; Nurse Practitioner
PROC: 3E03317 Introduction of Other Thrombolytic into Peripheral Vein, Percutaneous Approach (ICD-10-PCS; principal; 2016-10-29)
PROC: B24BZZZ Ultrasonography of Heart with Aorta (ICD-10-PCS; 2016-10-29)
PROC: 009U3ZX Drainage of Spinal Canal, Percutaneous Approach, Diagnostic (ICD-10-PCS; 2016-10-31)
PROC: B01BZZZ Fluoroscopy of Spinal Cord (ICD-10-PCS; 2016-10-31)
DX: G35 Multiple sclerosis (principal); E78.5 Hyperlipidemia, unspecified; E87.6 Hypokalemia; R50.9 Fever, unspecified; G81.91 Hemiplegia, unspecified affecting right dominant side; I70.0 Atherosclerosis of aorta; R47.81 Slurred speech; Z88.8 Allergy status to other drugs, medicaments and biological substances; Z90.710 Acquired absence of both cervix and uterus; Z82.3 Family history of stroke; D72.829 Elevated white blood cell count, unspecified; R27.0 Ataxia, unspecified
CPT/HCPCS: 36415; 36556; 70450; 70496; 70498; 70553; 71010; 74230; 77003; 80048; 80061; 80076; 80307; 81003; 81240; 81241; 81291; 82040; 82164; 82550; 82553; 82565; 82784; 82945; 82947; 83036; 83516; 83605; 83873; 83883; 83916; 84157; 84165; 84443; 84484; 84703; 85025; 85027; 85220; 85301; 85303; 85306; 85597; 85598; 85610; 85613; 85670; 85730; 86038; 86039; 86140; 86146; 86147; 86148; 86334; 86593; 86617; 86618; 86638; 86757; 86850; 86900; 86901; 87040; 87070; 87102; 87205; 87206; 87529; 87798; 87806; 87899; 88108; 89051; 92507; 92523-GN; 92526; 92610; 92611; 93005; 93306; 93312; 94760; 94761; 97110; 97116; 97163; 97167; 97530; 97535; 99285; A9577; J0595; J1815; J2250; J2405; J2930; J2997; J3010; Q9967

== ENCOUNTER 2016-12-08 09:32 | Emergency (ER) | payer OTHER ==
--- NOTE | ~2016-12-08 | EKG ---
PATIENT: ANGÉLICA POZO UNIT #: [id number] Ventricular Rate: 97 BPM Atrial Rate: 97 BPM P-R Interval: 124 ms QRS Duration: 82 ms Q-T Interval: 378 ms QTC Calculation(Bezet): 480 ms P Garland: 42 degrees Calculated R Garland: 45 degrees Calculated T Garland: 0 degrees Diagnosis Line: Normal sinus rhythm Diagnosis Line: Prolonged QT Diagnosis Line: Nonspecific ST and T wave abnormality Diagnosis Line: Abnormal ECG Diagnosis Line: Diagnosis Line: Confirmed by DANO CERVANTES MD ([id number]) on Diagnosis Line: 12/08/2016 3:08:00 PM INTERPRETING MD: NOLAN
--- NOTE | ~2016-12-08 | CT71 ---
[facility] A Service of [facility] RADIOLOGY TEXT RESULTS PATIENT: ANGÉLICA POZO LOCATION: [facility] : 74 UNIT #: [id number] AGE: [address]: Frank Burns MD SEX: F ORDER DR: [id number] [facility] [address] [place], [place] [address] [id number] E MR#: [id number] Acc #: [id number] NAME: ANGÉLICA POZO : 1970 SEX: F STUDY DATE/TIME: 12/08/2016 10:38 UNIT: [facility] ROOM: STUDY DESCRIPTION: CT Head Wo Contrast Attending Physician: Frank Burns M.D. Ordering Physician: Frank Burns M.D. Primary Care Physician: Primary Care Physician No MEDICAL IMAGING REPORT This report is preliminary unless electronic signature is present EXAM Head CT without contrast, 12/08/2016 HISTORY Left side head pain and right side weakness for 2 days and chest pain beginning last night. Previous stroke October 2016. TECHNIQUE Multiple axial images were obtained from the skull base to vertex without intravenous contrast administration. This CT exam was performed with one or more of the following radiation dose reduction techniques: automatic exposure control, adjustment of mA and/or kV according to patient size, and iterative reconstruction. FINDINGS The ventricles are normal in size, shape and position. There is no evidence of midline shift. Subacute to chronic infarct involving the left side of the navi is noted. This is better demonstrated on brain MRI performed 10/29/2016. There is no mass or mass effect. No intra or extraaxial fluid collections are identified. The visualized paranasal sinuses are clear. IMPRESSION Subacute to chronic infarct involving the left anterior aspect of the navi is better demonstrated on brain MRI dated 10/29/2016. No acute intracranial abnormality. Dictated by... Germán Barno M.D. THIS IS AN ELECTRONICALLY VERIFIED REPORT Germán Baron M.D. at 12/09/2016 6:26 AM [facility] A Service [facility] RADIOLOGY TEXT RESULTS PATIENT: ANGÉLICA POZO LOCATION: [facility] : 74 UNIT #: [id number] AGE: [address]: Frank Burns MD SEX: F ORDER DR: TORI/kavin TD: 12/08/2016 15:20 JOB #: [id number] MEDICAL IMAGING REPORT Page 1 of 1 COPY
--- NOTE | ~2016-12-08 | CR72 ---
[facility] A Service of [facility] & [facility] RADIOLOGY TEXT RESULTS PATIENT: ANGÉLICA POZO LOCATION: [facility] : 74 UNIT #: [id number] AGE: [address]: Frank Burns MD SEX: F ORDER DR: [id number] [facility] [address] [place], [place] [address] [id number] E MR#: [id number] Acc #: [id number] NAME: ANGÉLICA POZO : 1970 SEX: F STUDY DATE/TIME: 12/08/2016 10:06 UNIT: [facility] ROOM: STUDY DESCRIPTION: CR Chest Single View Portable Attending Physician: Frank Burns M.D. Ordering Physician: Frank Burns M.D. Primary Care Physician: Primary Care Physician No MEDICAL IMAGING REPORT This report is preliminary unless electronic signature is present EXAM Portable chest, 12/08/2016 HISTORY Chest pain beginning last night. FINDINGS A single AP portable view of the chest shows both lungs to be clear. The heart is normal in size. The mediastinal contour is normal. No significant bone abnormalities are seen. IMPRESSION Normal portable chest. Dictated by... Germán Baron M.D. THIS IS AN ELECTRONICALLY VERIFIED REPORT Germán Baron M.D. at 12/09/2016 6:26 AM TORI/kavin TD: 12/08/2016 15:10 JOB #: [id number] MEDICAL IMAGING REPORT Page 1 of 1 COPY
[2016-12-08 10:23] LABS: BASOPHIL% 0.4 % (0-2.5); EOSINOPHIL% 0.1 % (0.0-7.0); HEMATOCRIT 42.6 % (35.0-45.0); HEMOGLOBIN 14.1 gm/dL (12.0-16.0); LYMPHOCYTE# 1.2 X10e3 (1.0-3.5); LYMPHOCYTE% 13.1 % (17.0-45.0); MEAN CELL VOLUME 92.8 FL (83-96); MEAN CORPUSCULAR HEMOGLOBIN 30.7 PG (28-34); MEAN CORPUSCULAR HGB CONC 33.1 g/dL (30-36); MEAN PLATELET VOLUME 8.6 FL (6.5-11.5); MONOCYTE# 0.5 X10e3 (0-1.0); MONOCYTE% 5.1 % (3.0-12.0); NEUTROPHIL# 7.3 X10e3 (1.5-7.1); NEUTROPHIL% 81.3 % (40-75); PLATELET COUNT 288 X10e3 (140-420); RED BLOOD COUNT 4.59 X10e (3.90-5.30); RED CELL DISTRIBUTION WIDTH 14.5 % (11.0-15.5)
[2016-12-08 10:24] LABS: POC - CKMB <1.0 ng/mL (0.0-7.9); POC - TROPONIN <0.05 ng/mL (<=0.05)
[2016-12-08 10:28] LABS: DIFF IND NO
[2016-12-08 10:35] LABS: PARTIAL THROMBOPLASTIN TIME 26.7 SECONDS (23.5-31.3)
[2016-12-08 10:55] LABS: ALBUMIN SERUM 4.2 g/dL (3.5-5.0); ALKALINE PHOSPHATASE 81 U/L (32-92); ALT (SGPT) 13 U/L (10-40); AST (SGOT) 16 U/L (10-42); BILIRUBIN,TOTAL 0.3 mg/dL (0.2-2.0); BLOOD UREA NITROGEN 11 mg/dL (9-23); BUN/CREATININE RATIO 15.71; CALCIUM SERUM 9.4 mg/dL (8.4-10.2); CARBON DIOXIDE 27 mmol/L (22-31); CHLORIDE 101 mmol/L (100-111); CREATININE SERUM 0.7 mg/dL (0.6-1.4); GLOM FILT RATE Estimated 105.4 mL/min (>60); GLUCOSE FASTING 137 mg/dL (70-110); POTASSIUM 3.2 mmol/L (3.5-5.1); PROTEIN TOTAL SERUM 7.9 g/dL (6.0-8.3); SODIUM 138 mmol/L (135-145)
[2016-12-08 10:57] LABS: BILIRUBIN, DIRECT <0.1 mg/dL (0.0-0.2); BILIRUBIN,INDIRECT 0.2 mg/dL (0.0-0.9)
== END 2016-12-08 11:54 | disposition home or self-care (01) ==
LOC: CED 09:32
PROVIDERS: Emergency Medicine
DX: K21.9 Gastro-esophageal reflux disease without esophagitis (principal); Z88.8 Allergy status to other drugs, medicaments and biological substances; Z90.710 Acquired absence of both cervix and uterus
CPT/HCPCS: 36415; 70450; 71010; 80048; 80076; 82553; 84484; 85025; 85610; 85730; 93005; 99285

== ENCOUNTER 2016-12-20 16:54 | Inpatient (IN) | payer OTHER ==
--- NOTE | ~2016-12-20 | CO ---
Unit #: [id number] #: [id number] Patient: ANGÉLICA POZO [id number] [facility]. [place], [place] [address] [id number] I MR#: [id number] NAME: ANGÉLICA POZO ROOM: 551 Age: 46 Sex: F Admission Date: 12/21/2016 : 1970 Attending Physician: Edis Angeles M.D. Primary Care Physician: No Primary Care Physician Consultation Date: 12/21/2016 CONSULTATION REPORT CONSULTING PHYSICIAN Dr. Eliane Roberto REASON FOR CONSULT Multiple sclerosis flare. PATIENT IDENTIFICATION This is a 46-year-old, right handed Ashok female, evaluated in room 551 at [facility]. SOURCE OF INFORMATION Obtained from the patient. She is known to our service as well as from the medical record. HISTORY OF PRESENT ILLNESS This is a very pleasant 46-year-old, right handed Ashok female, seen by neurology here at [facility] in October 2016, for workup of possible demyelinating disease, who presents to [facility] with worsening weakness and headache for two to three days. She was admitted for further workup and evaluation for abnormal MRI and possible multiple sclerosis flare. She was started on IV steroids after the ED physician spoke with Dr. Curry in the ER. Neurology was asked to further evaluate. She was here in October, seen by Dr. Posey with neurology as well as Dr. Curry with neurology. Please see my dictation in the discharge summary from that time. She initially presented with stroke-like symptoms and received alteplase in the ED. She was evaluated by Dr. Curry via the robot at that time. She was admitted for full workup and did not show any major change with alteplase. An MRI showed a pontine lesion. However, it was concerning at that time for possibility of demyelinating disease versus other differential. Dr. Posey saw the patient, reviewed imaging. It was discussed with radiology. Please see radiology report. She had a full workup done including lumbar puncture and had multiple send out studies done. She was sent to [facility] for physical therapy and rehab and was discharged, according to the patient, from inpatient rehab in November and continues with outpatient [facility] rehab. She states she has a followup appointment with neurologist on January 08 though she is not able to tell me who. We had received some of her results from the testing that we sent out but MS panel was still pending. She returns to [facility] on 12/21/16 with complaints of worsening headache, worsening vision changes, worsening right sided weakness and new left sided weakness. Her vital signs were stable. She was treated with Toradol, Decadron, Reglan and Benadryl and IV fluids. Her headache has improved significantly. She states that her weakness has improved after her first dose of steroids but still feels weak and is Unit #: [id number] #: [id number] Patient: ANGÉLICA POZO actually generally weaker. She does appear to have some new left sided weakness and right sided weakness is again unchanged from her evaluation in October. She was admitted for further workup and evaluation and steroids were started at the recommendation of Dr. Curry. His MRI scan showed new lesions concerning for possible new demyelinating disease. The patient denies any exacerbating or alleviating factors. She reports symptoms have been going on for about two to three days. She denies any new speech difficulty or swallowing difficulty, neck pain or fever, loss of consciousness or loss of awareness. PAST MEDICAL HISTORY 1. Admission in October 2016, for right sided weakness, dysphagia and dysarthria. Please see above for details. She was treated initially with alteplase for possible CVA. However, she ended up having a full workup for possible demyelinating disease, given abnormal MRI findings. Please see those prior records. 2. Total abdominal hysterectomy. 3. History of abnormal CORAL in October 2016, as part of a stroke workup that showed mild to moderate atherosclerosis of the aorta. 4. Lumbar puncture done by interventional radiology on 10/31/16. Please see above. FAMILY HISTORY Noncontributory to the presenting condition. SOCIAL HISTORY The patient is a Ashok female. She actually came to the [place] about six months ago and traveled with her and his family up through [place]. She drinks alcohol on occasion but denies abuse. She denies illicit drug use. She is a lifelong nonsmoker. She is Malay speaking and requires the use of an astrochemist for communication at this hospital. ALLERGIES Lipitor. HOME MEDICATIONS 1. Aspirin. 2. Celebrex. 3. Pepcid. REVIEW OF SYSTEMS Fourteen point review of systems was done. Pertinent positives are as discussed above and done via the astrochemist with conversation via the telephone astrochemist #[id number]. PHYSICAL EXAMINATION VITAL SIGNS: Temperature 98.8. She has been afebrile. Pulse 82, respirations 18, blood pressure 103/44. Oxygen saturation 100% on room air. Height 5 feet 0 inches, weight 125 pounds. BMI 24. NEUROLOGIC EXAM: The patient is awake, she is alert, oriented and appropriate. Follows simple commands. She can carry on a conversation via the astrochemist phone without difficulty. Recognizes her significant other at the bedside. She has no right/left confusion, no finger agnosia, no aphasia. Difficult to assess for dysarthria as the patient does speak a different language from [place] but the astrochemist can understand her. CRANIAL NERVE EXAM: She demonstrates full rivero of vision. At this time, eyes do appear to be conjugate. She does wear special glasses. She Unit #: [id number] #: [id number] Patient: ANGÉLICA POZO does not appear to have any current ptosis or nystagmus. Evaluating her extraocular movements, I don't see a palsy. Sensation of the face and scalp is intact. On evaluation of strength of muscles of facial expression, she does have some mild right lower facial weakness with mild flattening of the nasolabial fold. Hearing is intact to finger rub and conversation. The tongue has mild right deviation. Unable to fully visualize uvula and palate. Head turning and shoulder shrug was unremarkable. Neck is supple. MOTOR EXAM: She has normal bulk, decreased tone on the left, some increased tone on the right. She has a drift bilaterally but appears to be a little bit weaker on the right upper and lower extremity compared to the left. She is 4+ to 5- with slightly greater weakness on the right compared to the left. SENSORY EXAM: Without extinction. GAIT AND ROMBERG: Deferred. REFLEXES: She is slightly hyperreflexive on the right. COORDINATION: Difficult to assess on the right. No abnormalities on the left. She does not appear to have any current past-pointing. She does have a little bit more difficulty with the right. DIAGNOSTIC STUDIES IMAGING: CT head without contrast on 12/20/16. Impression per radiology report - no acute findings. Chronic infarct in the left navi corresponds to similar findings on prior CT and MRI. MRI of the brain without and with contrast on 12/21/16. Impression per radiology report - abnormal MRI of the brain. Findings together are most consistent with clinical diagnosis of multiple sclerosis. Interval progression of disease overall noted since the study of 10/29/2016 with new areas of pathologic enhancement most likely representing areas of active demyelination. Some of the previously noted lesions have evolved with detailed description provided in the report. Largest new area of involvement is seen centered at the anterior limb of the right internal capsule with adjacent caudate and putaminal involvement. Correlate with clinical treatment course and findings. Continued followup recommended. Other similar demyelinating diseases would be in the differential diagnosis in the appropriate clinical setting. LABORATORY: Sodium 138, potassium 3.5, chloride 108, CO2 24, glucose 116, BUN 10, creatinine 0.4, estimated GFR 126.7, calcium 9, magnesium 1.8. Urinalysis shows trace leukocytes, negative for bacteria. Culture not indicated. CPK 33. Initial BMP unremarkable other than a potassium of 3.1. Again, repeat potassium 3.5. White blood cell count 10.6, hemoglobin 12.8, hematocrit 38.4, platelet count 277. IMPRESSION 1. Clinical diagnosis of multiple sclerosis/demyelinating disease in October 2016, with new flare and new lesions seen on MRI with new left sided weakness: Continue high dose steroids at this time. 2. Hypokalemia, improved. Unit #: [id number] #: [id number] Patient: ANGÉLICA POZO PLAN The patient has a followup neurology appointment on January 08. Will certainly continue steroids for five days at 1 g daily given new symptoms and new lesions. However, we would like to obtain her full MS panel results to follow up and as those were sent out in October. I will call lab to attempt to obtain those results and further followup recommendations will be made pending review of those with my attending, Dr. Curry. Will ask PT/OT to evaluate and treat as well and further recommendations again pending followup and review of her MS panel and further lumbar puncture that were sent out in October when she was last seen. Please call for any questions. We thank you very much for allowing us to assist in the care of this patient. Dictated by... Wu Perez.P.REvieN. for Shayna Curry M.D. ROLANDO/df TD: 12/23/2016 09:00 JOB #: [id number] CONSULTATION REPORT Page 1 of 1 X Marilynn Alfredo APRN CONSULTATION REPORT
--- NOTE | ~2016-12-20 | CT71 ---
[facility] A Service of [facility] RADIOLOGY TEXT RESULTS PATIENT: ANGÉLICA POZO LOCATION: C5 551-01 : 74 UNIT #: [id number] AGE: [address]: Edis Angeles MD SEX: F ORDER DR: [id number] [id number] [place], [place] [address] [id number] E MR#: [id number] Acc #: [id number] NAME: ANGÉLICA POZO : 1970 SEX: F STUDY DATE/TIME: 12/20/2016 21:50 UNIT: [facility] ROOM: STUDY DESCRIPTION: CT Head Wo Contrast Attending Physician: Everton Beck D.O. Ordering Physician: Lilibeth Blair M.D. Primary Care Physician: Primary Care Physician No MEDICAL IMAGING REPORT This report is preliminary unless electronic signature is present EXAM CT brain without contrast HISTORY Headache today. Weakness. FINDINGS This CT exam was performed with one or more of the following radiation dose reduction techniques: Automatic exposure control, adjustment of mA and/or kV according to patient size, and iterative reconstruction. CT brain without contrast demonstrates chronic infarct in the left navi, corresponding to similar finding on prior CT and MRI. No intracranial hemorrhage, mass or edema. No midline shift, focal atrophy or ventricular dilatation. No extraaxial fluid collection. IMPRESSION 1. No acute findings. 2. Chronic infarct in the left navi corresponds to similar findings on prior CT and MRI. Dictated by... Bernabe Ram M.D. THIS IS AN ELECTRONICALLY VERIFIED REPORT Bernabe Ram M.D. at 12/21/2016 11:26 PM DFL/lucie TD: 12/21/2016 00:42 JOB #: [id number] MEDICAL IMAGING REPORT [facility] A Service of [facility] RADIOLOGY TEXT RESULTS PATIENT: ANGÉLICA POZO LOCATION: [facility] 551-01 : 74 UNIT #: [id number] AGE: [address]: Edis Angeles MD SEX: F ORDER DR: Page 1 of 1 COPY
--- NOTE | ~2016-12-20 | MR17 ---
[facility] A Service of [facility] & [facility] RADIOLOGY TEXT RESULTS PATIENT: ANGÉLICA POZO LOCATION: [facility] 55-01 : 74 UNIT #: [id number] AGE: [address]: Edis Angeles MD SEX: F ORDER DR: [id number] [facility] [address] [place], [place] [address] [id number] I MR#: [id number] Acc #: [id number] NAME: ANGÉLICA POZO : 1970 SEX: F STUDY DATE/TIME: 12/21/2016 2:14 UNIT: [facility] ROOM: [facility] STUDY DESCRIPTION: MR Brain WWo Contrast Attending Physician: Eliane Roberto M.D. Ordering Physician: Everton Beck D.O. Primary Care Physician: Primary Care Physician No MRI CENTER REPORT This report is preliminary unless electronic signature is present. EXAM MRI brain with and without HISTORY 46-year-old female diagnosed with multiple sclerosis presents with headache and weakness since 12/20/2016. Patient had an abnormal MRI brain on 10/29/2016. No history of cancer. FINDINGS MRI of the brain was performed prior to and following intravenous administration of 11 mL of MultiHance. Comparison study is from 10/29/2016. There is a new focus of abnormal signal intensity centered in the right anterior limb of the internal capsule and involving the adjacent caudate and putamen. Area of T2 and FLAIR signal abnormality is about 2.0 cm in diameter. Centrally within this is an area of abnormally restricted diffusion about 6.0 mm in largest dimension and with contrast administration, there is a small amount of associated enhancement centrally. Additionally, there is a new small focus of subcortical white matter signal abnormality in the right anterior parietal lobe about 7.0 mm in length, 4.0 mm in width. This lesion is associated with some diffusion signal abnormality but it does not appear to be restricted on the ADC map. There is no associated enhancement. Lesion previously noted involving the posterior limb of the left internal capsule again seen, overall slightly more conspicuous and there is some increased involvement in the periventricular white matter particularly at the posterior aspect of the body of the left lateral ventricle. The signal abnormality in the left cerebral peduncle is now more conspicuous and the lesion is more well defined though slightly smaller. This signal abnormality extends into the navi left greater than right where it is also more conspicuous and more well defined but slightly smaller. Of note however, there is now enhancement in the left hemipons, somewhat rim-like and along the cortical STS. [facility] A Service of [facility] RADIOLOGY TEXT RESULTS PATIENT: ANGÉLICA POZO LOCATION: [facility] 551-01 : 74 UNIT #: [id number] AGE: [address]: Edis Angeles MD SEX: F ORDER DR: spinal tract. The enhancing lesion is about 1.8 cm in length and about 6.0-7.0 mm in diameter. Signal abnormality extends inferiorly to the upper left medulla. There is a small lesion at the periphery of the right cerebellar hemisphere inferiorly with signal abnormality on T2 and FLAIR imaging but no enhancement or restricted diffusion. The major intracranial flow voids are maintained. There is no extraaxial fluid collection. Probably some subtle mass effect associated with the disease in the left side of the brainstem and right anterior basal ganglia. The mastoid air cells are clear. The paranasal sinuses clear. Redemonstrated is some vague T2/FLAIR signal abnormality at the medial temporal lobes. This is not changed. Preliminary wet reading provided overnight by Dr. Lerma at 03:18 a.m. IMPRESSION Abnormal MRI brain. Findings together are most consistent with clinical diagnosis of multiple sclerosis. Interval progression of disease overall noted since the study of 10/29/2016 with new areas of pathologic enhancement most likely representing areas of active demyelination. Some of the previously noted lesions have evolved with detailed description provided above. Largest new area of involvement is seen centered at the anterior limb of the right internal capsule with adjacent caudate and putaminal involvement. Please correlate further with clinical treatment course and findings. Continued followup would be recommended. Other similar demyelinating diseases would be in the differential diagnosis in the appropriate clinical setting. STAT * RESULT Dictated by... Vanesa Mendez M.D. THIS IS AN ELECTRONICALLY VERIFIED REPORT Vanesa Mendez M.D. at 12/21/2016 10:54 AM Aldo TD: 12/21/2016 08:34 JOB #: [id number] MRI CENTER REPORT Page 1 of 1 COPY
--- NOTE | ~2016-12-20 | DS ---
Unit #: [id number] #: [id number] Patient: ANGÉLICA POZO [id number] [id number] [facility]. [place], [place] [address] [id number] MR#: [id number] NAME: ANGÉLICA POZO ROOM: 55 Age: 46 Sex: F Admission Date: 12/21/2016 : 1970 Discharge Date: Attending Physician: Edis Angeles M.D. Primary Care Physician: Primary Care Physician No DISCHARGE SUMMARY DISCHARGE DIAGNOSES 1. Right-sided weakness 2. Abnormal MRI 3. Multiple sclerosis HOSPITAL COURSE The patient is a 46-year-old female admitted to [facility] on 12/21/2016, secondary to some right-sided weakness, a headache and diplopia. Two days prior to presentation, the symptoms began and when they failed to resolved, she ultimately presented to the emergency department. The patient had been diagnosed with multiple sclerosis approximately 2 months prior. MRI of the brain was performed and showed significant difference and worsening as compared to MRI approximately two months ago. The impression from the MRI read findings together most consistent with clinical diagnosis of multiple sclerosis. There was an interval progression of disease overall noted since the study of 10/29/2016. There was a notation of a new focus of abnormal signal intensity centered at the right anterior limb of the internal capsule involving the adjacent caudate and putamen. Area of T2 and FLAIR signal abnormalities noted to be about 2 cm. There was noted to be a new focus of subcortical white matter signal abnormality in the right anterior parietal lobe. The lesion previously noted to involve the posterior limb of the left internal capsule was again seen, but was thought to be slightly worse with increased involvement in the periventricular white matter, particularly at the posterior aspect of the body of the left lateral ventricle. There is signal abnormality in the left cerebral peduncle noted on a prior exam, now felt to be more conspicuous. It was noted to extend into the navi left greater than right. Newly noted was some enhancement of the left sherry navi. It was described as being rim-like and along the cortical spinal tract. Given the significant change in such a short period of time, the case has been discussed with [facility] and the patient is being transferred there now. Discs containing images from both October and yesterday are being sent. DISCHARGE MEDICATIONS 1. Ambien 5 mg p.o. at bedtime p.r.n. sleep 2. Ativan 0.5 mg IV every 6 hours p.r.n. anxiety 3. Laxative of choice 4. Aspirin 81 mg daily 5. Protonix 40 mg daily Unit #: [id number] #: [id number] Patient: ANGÉLICA POZO 6. Methylprednisolone 1000 mg daily FOLLOWUP The patient is being discharge to [facility]. Appropriate follow up can be determined upon discharge from that facility. Dictated by... Roverto Arreguin/naomi TD: 12/22/2016 18:43 JOB #: [id number] DISCHARGE SUMMARY Page 1 of 1 X Edis Angeles MD X DISCHARGE SUMMARY
--- NOTE | ~2016-12-20 | HP ---
Unit #: [id number] #: [id number] Patient: ANGÉLICA POZO [id number] [address] [id number] I MR#: [id number] NAME: ANGÉLICA POZO ROOM: [address] Age: 46 Sex: F Admission Date: 12/21/2016 : 1970 Attending Physician: Eliane Roberto M.D. Primary Care Physician: No Primary Care Physician HISTORY AND PHYSICAL CHIEF COMPLAINT Multiple sclerosis flare. HISTORY This pleasant 46-year-old female, who was diagnosed with multiple sclerosis 10/2016, is admitted for right sided weakness, headache and diplopia. The patient was diagnosed with multiple sclerosis at this facility 10/29/2016. Did not follow up with neurology at the time of discharge, however, did improve after her discharge. States that two days ago she developed a fairly significant headache back of the neck, back of the head, with diplopia, right arm and right leg weakness and difficulty with coordination of her right hand. She presented to this emergency department late last evening with stable vital signs. Was treated with Toradol, Decadron, Reglan, Benadryl and IV fluids with some improvement of her headache. She continues to have right sided weakness with incoordination of her right hand, diplopia, and is not able to completely look laterally on the left, i.e. has a cranial nerve palsy. A call was made to Dr. Curry, and a stat MRI scan was performed showing new multiple sclerosis lesions. The patient is being admitted for high dose IV Solu-Medrol. PAST MEDICAL HISTORY 1. Admission 10/2016 for right sided weakness. The patient was initially treated with tPA for possible ischemic CVA. However, in the course of her workup, she was found to have multiple sclerosis on MRI. An LP was performed during that hospitalization which was negative for infection. 2. Total abdominal hysterectomy. ALLERGIES No known drug allergies. HOME MEDICATIONS 1. Aspirin. 2. Celebrex. 3. Pepcid. FAMILY HISTORY Negative for neurologic disease. SOCIAL HISTORY The patient is living with her boyfriend and her boyfriend's family. She Unit #: [id number] #: [id number] Patient: ANGÉLICA POZO speaks Filipino and I am using the anodic treater. Does not drink alcohol, is a lifelong nonsmoker. REVIEW OF SYSTEMS Difficult to obtain due to language barrier. PHYSICAL EXAMINATION GENERAL APPEARANCE: Very pleasant 46-year-old female, currently in no acute distress. VITAL SIGNS: Temperature 98.3, pulse 93, respirations 16, blood pressure 104/73. O2 saturation is 100% on room air. HEENT: Eyes PERRLA. The patient has a cranial nerve palsy and is unable to completely adduct left eye. Pharynx is benign. NECK: Supple without adenopathy or thyromegaly. CHEST: Clear. CARDIAC: Normal S1 and S2 without murmur. ABDOMEN: Bowel sounds are present. No hepatosplenomegaly, tenderness or masses. EXTREMITIES: Without clubbing, cyanosis or edema. Pedal pulses are present. NEUROLOGIC: The patient is awake, alert, oriented. Her cranial nerves are intact except that she does have a cranial nerve palsy affecting the left eye. She is mildly weak, right arm more so than the right leg, does have clonus on exam and hyper-brisk reflexes. Has difficulty with [id number] on the right and coordination right arm. Positive pronator drift on the right. Slight ataxia. DIAGNOSTIC STUDIES LABORATORY: Admission labs - hematocrit 38.4, white blood count 10.6, normal platelet count. SMA-12 - potassium is 3.1. Urinalysis - trace leukocyte esterase. 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 However, MRI scan shows that the area in the navi is related to multiple sclerosis. There are new MS lesions in the right basal ganglia and right caudate lobe along on the navi superimposed on previous white matter changes consistent with multiple sclerosis. ASSESSMENT 1. Multiple sclerosis with exacerbation associated with right sided weakness, ataxia, diplopia, and a cranial nerve palsy affecting the left eye. 2. Hypokalemia. PLANS 1. The case was discussed with neurology. 2. Five days of high dose IV steroids. 3. Replace potassium. 4. Will place on a proton pump inhibitor, anxiolytics, and DVT prophylaxis. 5. Neurology to see in the morning. Unit #: [id number] #: [id number] Patient: ANGÉLICA POZO Dictated by Eliane Roberto M.D. AML/df TD: 12/21/2016 05:09 JOB #: [id number] HISTORY AND PHYSICAL Page 1 of 1 X Eliane Roberto MD HISTORY AND PHYSICAL
[2016-12-20 21:02] LABS: BASOPHIL% 0.4 % (0-2.5); EOSINOPHIL# 0.1 X10e3 (0-0.7); EOSINOPHIL% 0.5 % (0.0-7.0); HEMATOCRIT 38.4 % (35.0-45.0); HEMOGLOBIN 12.8 gm/dL (12.0-16.0); MEAN CORPUSCULAR HEMOGLOBIN 30.6 PG (28-34); MEAN CORPUSCULAR HGB CONC 33.3 g/dL (30-36); MEAN PLATELET VOLUME 8.4 FL (6.5-11.5); MONOCYTE# 0.8 X10e3 (0-1.0); MONOCYTE% 7.6 % (3.0-12.0); NEUTROPHIL# 7.7 X10e3 (1.5-7.1); NEUTROPHIL% 72.5 % (40-75); PLATELET COUNT 277 X10e3 (140-420); RED BLOOD COUNT 4.17 X10e (3.90-5.30); RED CELL DISTRIBUTION WIDTH 14.2 % (11.0-15.5); WHITE BLOOD COUNT 10.6 X10e3 (4.0-10.5)
[2016-12-20 21:05] LABS: DIFF IND NO
[2016-12-20 21:30] LABS: ALBUMIN SERUM 3.9 g/dL (3.5-5.0); BILIRUBIN, DIRECT 0.1 mg/dL (0.0-0.2); BILIRUBIN,INDIRECT 0.6 mg/dL (0.0-0.9); BILIRUBIN,TOTAL 0.7 mg/dL (0.2-2.0); CREATININE SERUM 0.5 mg/dL (0.6-1.4); GLOM FILT RATE Estimated 117.7 mL/min (>60); POTASSIUM 3.1 mmol/L (3.5-5.1); PROTEIN TOTAL SERUM 7.3 g/dL (6.0-8.3)
[2016-12-20 22:34] LABS: URINE SOURCE CLEAN CATCH
[2016-12-20 22:37] LABS: URINE APPEARANCE CLEAR; URINE BILIRUBIN NEG (NEG); URINE BLOOD NEG (NEG); URINE COLOR YELLOW; URINE GLUCOSE NEG (NEG); URINE KETONE NEG (NEG); URINE LEUKOCYTE ESTERASE TRACE (NEG); URINE NITRATE NEG (NEG); URINE PH 6.5 (5-8); URINE PROTEIN NEG (NEG); URINE SPECIFIC GRAVITY 1.003 (1.003-1.035); URINE UROBILINOGEN 0.2 MG/DL (NEG)
[2016-12-20 22:39] LABS: URBCS1 AUWI 0-2 /[HPF] (0-2); URINE BACTERIA AUWI NEG (NEGATIVE); URINE SQUAMOUS EPITHELIAL CELL NONE SEEN /[HPF]; UWBCS1 AUWI 0-2 (0-5)
[2016-12-20 22:48] LABS: CULTURE INDICATED? NO
[2016-12-20] MEDS ORDERED: ASPIRIN81 M2 PO (23:14)
[2016-12-20] MEDS ORDERED: CELECOXIB200 MG PO (23:14)
[2016-12-20] MEDS ORDERED: FAMOTIDINE20 M1 PO (23:15)
[2016-12-21 12:55] LABS: CREATININE SERUM 0.4 mg/dL (0.6-1.4); GLOM FILT RATE Estimated 126.7 mL/min (>60); MAGNESIUM 1.8 mg/dL (1.6-3.0); POTASSIUM 3.5 mmol/L (3.5-5.1)
== END 2016-12-22 20:52 | disposition short-term general hospital (02) | DRG 60 ==
LOC: CED 16:54 → CEDOF 12-21 03:40 → C5B 12-21 05:15 → CEDOF 12-21 05:15 → C5B 12-21 09:04
PROVIDERS: Emergency Medicine; Internal Medicine
DX: G35 Multiple sclerosis (principal); E87.6 Hypokalemia; Z90.710 Acquired absence of both cervix and uterus; Z79.82 Long term (current) use of aspirin; Z88.8 Allergy status to other drugs, medicaments and biological substances; R90.89 Other abnormal findings on diagnostic imaging of central nervous system
CPT/HCPCS: 36415; 70450; 70553; 80048; 80076; 81003; 82550; 83735; 85025; 96361; 96374; 96375; 97110; 97116; 97162; 97167; 99285; A9577; G8978-GP; G8979-GP; G8987-GO; G8988-GO; J1100; J1200; J1650; J1885; J2060; J2765; J2930

== ENCOUNTER 2017-02-05 09:43 | Emergency (ER) | payer OTHER ==
--- NOTE | ~2017-02-05 | EKG ---
PATIENT: ANGÉLICA HAHN UNIT #: [id number] Ventricular Rate: 109 BPM Atrial Rate: 109 BPM P-R Interval: 124 ms QRS Duration: 76 ms Q-T Interval: 334 ms QTC Calculation(Bezet): 449 ms P [place]: 40 degrees Calculated R [place]: 38 degrees Calculated T [place]: 24 degrees Diagnosis Line: Sinus tachycardia Diagnosis Line: Otherwise normal ECG Diagnosis Line: Diagnosis Line: Confirmed by DANO CERVANTES MD ([id number]) on Diagnosis Line: 02/05/2017 12:23:00 PM INTERPRETING MD: NOLAN
[~2017-02-05 09:43] MED LIST: ASPIRIN81 M2 PO; CELECOXIB200 MG PO; FAMOTIDINE20 M1 PO
[2017-02-05 11:08] LABS: BASOPHIL% 0.3 % (0-2.5); EOSINOPHIL% 0.1 % (0.0-7.0); HEMATOCRIT 38.8 % (35.0-45.0); HEMOGLOBIN 12.8 gm/dL (12.0-16.0); LYMPHOCYTE% 13.6 % (17.0-45.0); MEAN CELL VOLUME 91.7 FL (83-96); MEAN CORPUSCULAR HEMOGLOBIN 30.4 PG (28-34); MEAN CORPUSCULAR HGB CONC 33.1 g/dL (30-36); MEAN PLATELET VOLUME 8.5 FL (6.5-11.5); MONOCYTE# 0.5 X10e3 (0-1.0); MONOCYTE% 6.9 % (3.0-12.0); NEUTROPHIL# 6.1 X10e3 (1.5-7.1); NEUTROPHIL% 79.1 % (40-75); PLATELET COUNT 267 X10e3 (140-420); RED BLOOD COUNT 4.23 X10e (3.90-5.30); RED CELL DISTRIBUTION WIDTH 13.1 % (11.0-15.5); WHITE BLOOD COUNT 7.7 X10e3 (4.0-10.5)
[2017-02-05 11:09] LABS: DIFF IND NO
[2017-02-05 11:21] LABS: PARTIAL THROMBOPLASTIN TIME 28.7 SECONDS (23.5-31.3)
[2017-02-05 11:41] LABS: URINE SOURCE CLEAN CATCH
[2017-02-05 11:52] LABS: ALBUMIN SERUM 3.8 g/dL (3.5-5.0); BILIRUBIN, DIRECT 0.1 mg/dL (0.0-0.2); BILIRUBIN,INDIRECT 0.4 mg/dL (0.0-0.9); BILIRUBIN,TOTAL 0.5 mg/dL (0.2-2.0); CALCIUM SERUM 9.2 mg/dL (8.4-10.2); CREATININE SERUM 0.5 mg/dL (0.6-1.4); GLOM FILT RATE Estimated 117.7 mL/min (>60); POTASSIUM 3.4 mmol/L (3.5-5.1); PROTEIN TOTAL SERUM 7.4 g/dL (6.0-8.3)
[2017-02-05 12:06] LABS: URINE APPEARANCE CLEAR; URINE BILIRUBIN NEG (NEG); URINE BLOOD TRACE (NEG); URINE COLOR YELLOW; URINE GLUCOSE NEG (NEG); URINE KETONE NEG (NEG); URINE LEUKOCYTE ESTERASE 1+ (NEG); URINE NITRATE NEG (NEG); URINE PH 7.5 (5-8); URINE PROTEIN NEG (NEG); URINE SPECIFIC GRAVITY 1.018 (1.003-1.035)
[2017-02-05 12:08] LABS: CULTURE INDICATED? YES; URINE BACTERIA AUWI NEG (NEGATIVE); URINE SQUAMOUS EPITHELIAL CELL OCC /[HPF]
== END 2017-02-05 14:37 | disposition hospice, home (50) ==
LOC: CED 09:43
PROVIDERS: Emergency Medicine
DX: G35 Multiple sclerosis (principal)
CPT/HCPCS: 36415; 80048; 80076; 81003; 82947; 84703; 85025; 85610; 85730; 87086; 93005; 99285

== ENCOUNTER 2017-03-01 21:44 | Emergency (ER) | payer OTHER | END 2017-03-01 23:45 | disposition home or self-care (01) | LOC: CED 21:44 | DX: R51 Headache (principal); M54.2 Cervicalgia; M54.9 Dorsalgia, unspecified; Z79.82 Long term (current) use of aspirin; Z79.899 Other long term (current) drug therapy; Z88.8 Allergy status to other drugs, medicaments and biological substances | CPT/HCPCS: 96372; 99283; J1885 ==